=== PATIENT | female | born 1930 | race Caucasian/White ===

== ENCOUNTER 2017-09-17 16:52 | Observation (INO) | payer MEDICARE ==
[2017-09-17] MEDS ORDERED: Sodium Chloride 0.9% 1000 ML 1,000 ML ONE ×2 (18:20→19:27)
[2017-09-17] MEDS ORDERED: Zofran 4 MG/2 ML VIAL ONE (18:20)
[2017-09-17] MEDS ORDERED: Sodium Chloride 0.9% 1000 ML 1,000 ML IV STA ×2 (18:20→18:45)
[2017-09-17] MEDS ORDERED: Zofran 4 MG/2 ML VIAL IV ONE (18:21)
[2017-09-17] MEDS ORDERED: TYLENOL 325 MG PO STA (18:45)
[2017-09-17] MEDS ORDERED: TYLENOL 325 MG ONE (18:46)
--- NOTE | 2017-09-17 18:55 | ERPHSYRPT ---
- History of Present Illness Source: patient, family Exam Limitations: clinical condition Patient Subjective Stated Complaint: VOMITING AND FEVER STARTING LAST NIGHT, BODY ACHES, HEADACHE, DENIESH CHEST PAIN, COUGH, SHORTNESS OF BREATH OR DIARRHEA Triage Nursing Assessment: ALERT AND ORIENTED. MOANING. EASY BREATHING. BILATERAL ANTERIOR POSTERIOR LUNGS DIMINISHED. BOWEL SOUNDS PRESENT. NO EDEMA. Timing/Duration: yesterday Severity: moderate Associated Symptoms: nausea, vomiting, cough, fever, headaches, loss of appetite Hx Tetanus, Diphtheria Vaccination/Date Given: No Hx Influenza Vaccination/Date Given: No Hx Pneumococcal Vaccination/Date Given: Yes Immunizations Up to Date: No <MANJIT WOODWARD - Last Filed: 09/17/17 18:51> <CHAITANYA MOTTA - Last Filed: 09/17/17 23:37> - History of Present Illness Time Seen by Provider: 09/17/17 18:51 Physician History: mild to mod fever and cough w/ NV for one day, diffuse aches and generalized weakness (MANJIT WOODWARD) Allergies/Adverse Reactions: erythromycin base Allergy (Verified 09/14/15 18:16) iodine Allergy (Verified 09/14/15 18:16) meloxicam Allergy (Verified 09/14/15 18:16) methotrexate Allergy (Verified 09/14/15 18:16) methylprednisolone [From Medrol] Allergy (Verified 09/14/15 18:16) metoclopramide HCl [From Reglan] Allergy (Verified 09/14/15 18:16) primidone [From Mysoline] Allergy (Verified 09/14/15 18:16) Home Medications: Acetaminophen [Tylenol Extra Strength] 1,000 mg PO Q4H PRN PRN 09/14/15 [History ] Brimonidine Tartrate/Timolol [Combigan Eye Drops] 2 drop OP BID 09/14/15 [ History] Calcium Carbonate/Vitamin D3 [Calcium 600 + Vit D 200 Tablet] 1 each PO BID 05/22 [History] Dextran 70/Hypromellose [Artificial Tears] 1 each OP QID 09/14/15 [History] Esomeprazole Magnesium [Nexium] 40 mg PO DAILY 09/14/15 [History] Folic Acid/Multivit,Iron,[place] [One Daily Complete Tablet] 1 each PO DAILY 09/14 [History] Hydrocodone Bit/Acetaminophen [[place] 5-325 Tablet] 1 each PO Q6H PRN PRN [History] Meclizine HCl [Antivert] 12.5 mg PO QID PRN PRN 09/14/15 [History] Polyethylene Glycol 3350 17 gm [Miralax Powder 17GM PACKET] 17 gm PO DAILY [History] Trazodone HCl 50 mg [Desyrel 50 mg] 25 mg PO HS PRN PRN 09/14/15 [History] Vit A/Vit C/Vit E/Zinc/Copper [Icaps Areds Formula Tablet] 4 each PO DAILY 09/14 [History] - Review of Systems Constitutional: Fever, Fatigue Eyes: No Eye Pain Ears, Nose, & Throat: No Mouth Pain Respiratory: Cough Cardiac: No Chest Pain Abdominal/Gastrointestinal: Nausea, Vomiting Genitourinary Symptoms: No Dysuria Musculoskeletal: No Injury Neurological: Headache, No Focal Weakness Psychological: No Symptoms <MANJIT WOODWARD - Last Filed: 09/17/17 18:51> - Past Medical History Pertinent Past Medical History: Yes ENT History: Cataracts, Glaucoma Musculoskeletal History: Degenerative Disk Disease GI Medical History: GERD - Past Surgical History Past Surgical History: Yes Musculoskeletal: Orthopedic Surgery Female Surgical History: Hysterectomy Other Surgical History: cataracts, glaucoma, left bone spur, right rotator cuff , right knee orthoscopic, rectal - Social History Smoking Status: Never smoker Exposure to second hand smoke: No Drug Use: none Patient Lives Alone: Yes <MANJIT WOODWARD - Last Filed: 09/17/17 18:51> - Physical Exam General Appearance: no apparent distress Eye Exam: other (disconjugate gaze not new) Ears, Nose, Throat Exam: moist mucous membranes Neck Exam: supple, No meningismus Respiratory Exam: normal breath sounds Cardiovascular Exam: regular rate/rhythm Gastrointestinal/Abdomen Exam: soft, tenderness, No distention, No rebound Back Exam: No vertebral tenderness Extremity Exam: pelvis stable Neurologic Exam: alert, oriented x 3, cooperative Skin Exam: normal color, warm, dry Oxygen Delivery: Room Air <MANJIT WOODWARD - Last Filed: 09/17/17 18:51> - Nursing Vital Signs Nursing Vital Signs: Initial Vital Signs Temperature 99.6 F 09/17/17 17:49 Pulse Rate 90 09/17/17 17:49 Respiratory Rate 20 09/17/17 17:49 Blood Pressure 123/66 09/17/17 17:49 Pain Scale Pain Intensity 7 - CT Exams Head CT Interpretation: Discussed w/radiologist (STABLE NONACUTE SENILE BRAIN WITH A 1.5CM RIGHT POSTERIOR FOSSA CALCIFIED MENINGOMA NO CHANGE COMPARED TO 07/23/2008 , COMPLETE OPACIFICATION OF PARTIAL VISUALIZATION LEFT MAXILLARY SINUS) Abdomen/Pelvis CT Interpretation: Discussed w/radiologist (SMALL HIATAL HERNIA,LEFT RENAL PERIPELVIC CYSTS, SMALL FATTY LEFT INGUINAL HERNIA, REMAINING ABDOMEN/PELVIS NEGATIVE) <CHAITANYA MOTTA - Last Filed: 09/17/17 23:37> Ordered Tests: Active Orders 24 hr Category Date Time Status Up With Assistance ROUTINE Activity 09/17/17 23:31 Ordered Admission/Status Order ROUTINE Care 09/17/17 23:32 Ordered Call Admit Doctor for Orders ON ADMISSION Care 09/17/17 23:33 Ordered Code Status Order ROUTINE Care 09/17/17 23:32 Ordered IV Care Q6H Care 09/17/17 23:32 Ordered IV Insertion STAT Care 09/17/17 18:45 Active Vital Signs Q4H Care 09/17/17 23:31 Ordered Clear Liquid Diet 09/17/17 Breakfast Ordered ABDOMEN AND PELVIS W/0 CONTRAS [CT] Stat Exams 09/17/17 18:55 Taken CHEST 1 VIEW (PORTABLE) Stat Exams 09/17/17 18:46 Taken HEAD WITHOUT CONTRAST [CT] Stat Exams 09/17/17 19:37 Taken BLOOD CULTURE Stat Lab 09/17/17 19:10 Received CBC W DIFF Stat Lab 09/17/17 18:45 Completed CMP Stat Lab 09/17/17 18:45 Completed CULTURE, THROAT Stat Lab 09/17/17 19:10 Received CULTURE,URINE Stat Lab 09/17/17 19:10 Received Lactic Acid Stat Lab 09/17/17 18:45 Completed Manual Differential NC Stat Lab 09/17/17 18:45 Completed STREP SCREEN-BETA A Stat Lab 09/17/17 19:10 Completed UA W/ MICROSCOPIC Stat Lab 09/17/17 19:10 Completed Medication Summary Generic Name Dose Route Start Last Admin Trade Name Freq PRN Reason Stop Dose Admin Acetaminophen 650 mg 09/17/17 23:31 Tylenol 325 Mg PO 10/17/17 23:30 Q4H PRN PRN PAIN AND/OR FEVER Hydrocodone Bitart/Acetaminophen 1 tab 09/17/17 23:36 [place] 5/325 Mg PO 09/22/17 23:35 QID PRN PRN PAIN Ceftriaxone Sodium/Dextrose 1 g in 50 mls @ 100 mls/hr 09/18/17 10:00 Rocephin 1 Gm-D5w 50 Ml Bag IV 10/18/17 09:59 Q24H10 [place] Sodium Chloride 1,000 mls @ 75 mls/hr 09/17/17 23:45 Sodium Chloride 0.9% 1000 Ml IV 10/17/17 23:44 .[id number] [place] Ondansetron HCl 4 mg 09/17/17 23:31 Zofran 4 Mg/2 Ml Vial IV 10/17/17 23:30 Q6H PRN PRN NAUSEA/VOMITING Pantoprazole Sodium 40 mg 09/18/17 10:00 Protonix 40 Mg Iv IV 10/18/17 09:59 Q24H10 [place] Trazodone HCl 50 mg 09/18/17 10:00 Desyrel 50 Mg PO 10/18/17 09:59 DAILY [facility] Discontinued Medications Generic Name Dose Route Start Last Admin Trade Name Freq PRN Reason Stop Dose Admin Acetaminophen Confirm 09/17/17 18:46 Tylenol 325 Mg Administered 09/17/17 18:47 Dose 650 mg .ROUTE .STK-MED ONE Acetaminophen 650 mg 09/17/17 18:45 09/17/17 18:51 Tylenol 325 Mg PO 09/17/17 18:46 650 mg STAT STA Administration Fentanyl Citrate 50 mcg 09/17/17 23:25 09/17/17 23:30 Sublimaze 100 Mcg/2 Ml IV 09/17/17 23:26 50 mcg STAT ONE Administration Fentanyl Citrate Confirm 09/17/17 23:29 Sublimaze 100 Mcg/2 Ml Administered 09/17/17 23:30 Dose 100 mcg .ROUTE .STK-MED ONE Sodium Chloride 1,000 mls @ 999 mls/hr 09/17/17 18:20 09/17/17 18:22 Sodium Chloride 0.9% 1000 Ml IV 09/17/17 19:20 999 mls/hr .Q1H1M STA Administration Sodium Chloride Confirm 09/17/17 18:20 Sodium Chloride 0.9% 1000 Ml Administered 09/17/17 18:21 Dose 1,000 mls @ ud .ROUTE .STK-MED ONE Sodium Chloride 1,000 mls @ 999 mls/hr 09/17/17 18:45 09/17/17 19:33 Sodium Chloride 0.9% 1000 Ml IV 09/17/17 19:45 999 mls/hr .Q1H1M STA Administration Sodium Chloride Confirm 09/17/17 19:27 Sodium Chloride 0.9% 1000 Ml Administered 09/17/17 19:28 Dose 1,000 mls @ ud .ROUTE .STK-MED ONE Ceftriaxone Sodium/Dextrose 1 g in 50 mls @ 100 mls/hr 09/17/17 21:22 21:29 Rocephin 1 Gm-D5w 50 Ml Bag IV 09/17/17 21:51 100 mls/hr STAT STA Administration Ceftriaxone Sodium/Dextrose Confirm 09/17/17 21:27 Rocephin 1 Gm-D5w 50 Ml Bag Administered 09/17/17 21:28 Dose 1 g in 50 mls @ ud IV .STK-MED ONE Ondansetron HCl 4 mg 09/17/17 18:21 09/17/17 18:23 Zofran 4 Mg/2 Ml Vial IV 09/17/17 18:22 4 mg STAT ONE Administration Ondansetron HCl Confirm 09/17/17 18:20 Zofran 4 Mg/2 Ml Vial Administered 09/17/17 18:21 Dose 4 mg .ROUTE .STK-MED ONE Lab/Rad Data: Laboratory Result Diagrams 09/17/17 18:45 09/17/17 18:45 Laboratory Results 09/17/17 09/17/17 09/17/17 Range/Units 19:15 19:10 19:10 WBC (4.0-10.5) K/mm3 RBC (4.1-5.4) M/mm3 Hgb (12.0-16.0) gm/dl Hct (35-47) % MCV (78-100) fl MCH (26-32) pg MCHC (32-36) g/dl RDW (11.5-14.0) % Plt Count (150-450) K/mm3 MPV (6-9.5) fl Segmented Neutrophils (36.0-66.0) % Lymphocytes (Manual) (24-44) % Monocytes (Manual) (0.0-12.0) % Differential Comment Platelet Estimate (NORMAL) Sodium (136-145) mEq/L Potassium (3.5-5.1) mEq/L Chloride (98-107) mEq/L Carbon Dioxide (21-32) mEq/L Anion Gap (5-15) MEQ/L BUN (9-20) mg/dL Creatinine (0.55-1.30) mg/dl Estimated GFR ML/MIN Glucose (70-110) MG/DL Lactic Acid (0.4-2.0) Calcium (8.5-10.1) mg/dL Total Bilirubin (0.2-1.0) mg/dL AST (15-37) U/L ALT (12-78) U/L Alkaline Phosphatase (46-116) U/L Serum Total Protein (6.4-8.2) gm/dL Albumin (3.4-5.0) g/dL Ur Collection Type CLEAN CATCH Urine Color DARK YELLOW (YELLOW) Urine Appearance CLEAR (CLEAR) Urine pH 7.0 (5-6) Ur Specific [place] 1.015 (1.005-1.025) Urine Protein TRACE (Negative) Urine Ketones LARGE (NEGATIVE) Urine Blood 250 (0-5) Oleg/ul Urine Nitrite NEGATIVE (NEGATIVE) Urine Bilirubin NEGATIVE (NEGATIVE) Urine Urobilinogen NORMAL (0-1) mg/dL Ur Leukocyte Esterase NEGATIVE (NEGATIVE) Urine Microscopic RBC 25-50 (0-2) /HPF Urine Microscopic WBC 2-5 (0-5) /HPF Ur Epithelial Cells FEW (FEW) /HPF Urine Bacteria FEW (NEGATIVE) /HPF Urine Mucus SLIGHT (NEGATIVE) /HPF Urine Culture Reflexed YES (NO) Urine Glucose NEGATIVE (NEGATIVE) mg/dL Influenza Type A Ag NEGATIVE (NEGATIVE) Influenza Type B Ag NEGATIVE (NEGATIVE) RSV (PCR) NEGATIVE (Negative) Streptococcus Screen NEGATIVE (Negative) Specimen Received 09/17/17190909/17/17 09/17/17 09/17/17 Range/Units 18:45 18:45 18:45 WBC 9.0 (4.0-10.5) K/mm3 RBC 4.42 (4.1-5.4) M/mm3 Hgb 13.3 (12.0-16.0) gm/dl Hct 41.2 (35-47) % MCV 93.2 (78-100) fl MCH 30.1 (26-32) pg MCHC 32.3 (32-36) g/dl RDW 13.9 (11.5-14.0) % Plt Count 149 L (150-450) K/mm3 MPV 11.3 H (6-9.5) fl Segmented Neutrophils 87 H (36.0-66.0) % Lymphocytes (Manual) 8 L (24-44) % Monocytes (Manual) 5 (0.0-12.0) % Differential Comment NORMAL Platelet Estimate NORMAL (NORMAL) Sodium 138 (136-145) mEq/L Potassium 3.6 (3.5-5.1) mEq/L Chloride 100 (98-107) mEq/L Carbon Dioxide 28.2 (21-32) mEq/L Anion Gap 13.0 (5-15) MEQ/L BUN 15 (9-20) mg/dL Creatinine 0.79 (0.55-1.30) mg/dl Estimated GFR > 60 ML/MIN Glucose 120 H (70-110) MG/DL Lactic Acid 1.1 (0.4-2.0) Calcium 9.1 (8.5-10.1) mg/dL Total Bilirubin 0.70 (0.2-1.0) mg/dL AST 32 (15-37) U/L ALT 22 (12-78) U/L Alkaline Phosphatase 93 (46-116) U/L Serum Total Protein 7.7 (6.4-8.2) gm/dL Albumin 3.6 (3.4-5.0) g/dL Ur Collection Type Urine Color (YELLOW) Urine Appearance (CLEAR) Urine pH (5-6) Ur Specific [place] (1.005-1.025) Urine Protein (Negative) Urine Ketones (NEGATIVE) Urine Blood (0-5) Oleg/ul Urine Nitrite (NEGATIVE) Urine Bilirubin (NEGATIVE) Urine Urobilinogen (0-1) mg/dL Ur Leukocyte Esterase (NEGATIVE) Urine Microscopic RBC (0-2) /HPF Urine Microscopic WBC (0-5) /HPF Ur Epithelial Cells (FEW) /HPF Urine Bacteria (NEGATIVE) /HPF Urine Mucus (NEGATIVE) /HPF Urine Culture Reflexed (NO) Urine Glucose (NEGATIVE) mg/dL Influenza Type A Ag (NEGATIVE) Influenza Type B Ag (NEGATIVE) RSV (PCR) (Negative) Streptococcus Screen (Negative) Specimen Received <MANJIT WOODWARD - Last Filed: 09/17/17 18:51> - Progress Discussed with : Blanco (DISCUSSED WITH DR CHURCH AT 2330 FOR OBSERVATION) <CHAITANYA MOTTA - Last Filed: 09/17/17 23:37> - Progress Progress Note: 09/17/17 18:[address] Motta at 19:00 (MANJIT WOODWARD) <MANJIT WOODWARD - Last Filed: 09/17/17 18:51> - Departure Time of Disposition: 23:30 Departure Disposition: In-patient Admission Critical Care Time: No <CHAITANYA MOTTA - Last Filed: 09/17/17 23:37> - Departure Clinical Impression: INTRACTABLE EMESIS, FEVER, LEFT MAXILLARY SINUSITIS Condition: Stable Referrals: BRANDON IYER [Primary Care Provider] -
[2017-09-17 18:59] LABS: Mean Cell Volume 93.2 fl (78-100); Mean Corpuscular Hemoglobin 30.1 pg (26-32); Mean Platelet Volume 11.3 fl (6-9.5); Platelet Count 149 K/mm3 (150-450); Red Blood Count 4.42 M/mm3 (4.1-5.4); Red Cell Distribution Width 13.9 % (11.5-14.0)
[2017-09-17 19:04] LABS: ALBUMIN 3.6 g/dL (3.4-5.0); ALKALINE PHOSPHATASE 93 U/L (46-116); BLOOD UREA NITROGEN 15 mg/dL (9-20); CHLORIDE 100 mEq/L (98-107); Carbon Dioxide 28.2 mEq/L (21-32); Glucose 120 MG/DL (70-110); Potassium 3.6 mEq/L (3.5-5.1); SGOT/AST 32 U/L (15-37); SGPT/ALT 22 U/L (12-78); SODIUM 138 mEq/L (136-145); Total Protein 7.7 gm/dL (6.4-8.2)
[2017-09-17 19:16] LABS: Total Cells Counted 100
[2017-09-17 19:17] LABS: Platelet Estimate NORMAL (NORMAL)
[2017-09-17 20:07] LABS: Collection Type CLEAN CATCH
[2017-09-17 20:08] LABS: Bilirubin NEGATIVE (NEGATIVE); Blood 250 Ery/ul (0-5); COMPLETE URINE MICROSCOPIC? YES; Glucose NEGATIVE (NEGATIVE); Leukocyte Esterase NEGATIVE (NEGATIVE); Mucus SLIGHT /HPF (NEGATIVE)
[2017-09-17 20:09] LABS: ADD URINE CULTURE? YES (NO); Bacteria FEW /HPF (NEGATIVE); Epithelial Cells FEW /HPF (FEW)
[2017-09-17] MEDS ORDERED: ROCEPHIN 1 Gm-D5w 50 ml Bag** 1 G/50 ML IVPB IV STA (21:22)
[2017-09-17] MEDS ORDERED: ROCEPHIN 1 Gm-D5w 50 ml Bag** 1 G/50 ML IVPB IV ONE (21:27)
[2017-09-17] MEDS ORDERED: SUBLIMAZE 100 MCG/2 ML IV ONE (23:25)
[2017-09-17] MEDS ORDERED: SUBLIMAZE 100 MCG/2 ML ONE (23:29)
[2017-09-17] MEDS ORDERED: TYLENOL 325 MG PO PRN (23:31)
[2017-09-17] MEDS ORDERED: Zofran 4 MG/2 ML VIAL IV PRN (23:31)
[2017-09-18] MEDS: Sodium Chloride 0.9% 1000 ML 1,000 ML IV SCH ×2 (02:05→13:57)
[2017-09-18] MEDS: NORCO 5/325 MG PO PRN ×2 (05:07→11:42)
--- NOTE | 2017-09-18 08:40 | XRAY ---
Indication: Fever. Comparison: December 26, 2011. Portable chest again hyperinflated with a few incidental calcific granulomas. No focal infiltrate, consolidation, or large effusion. Heart is not enlarged for AP portable technique. Bony thorax intact again with mild osteopenia and previous right shoulder surgery. Impression: Stable nonacute chest with chronic features.
--- NOTE | 2017-09-18 08:44 | XRAY ---
Indication: Headache. Multiple contiguous axial images obtained through the head without contrast. Comparison: July 23, 2008. Again age-appropriate global atrophy and minimal periventricular degenerative micro-ischemia. Again there is a 1.5 cm right posterior fossa calcified meningioma. No acute intracranial hemorrhage, abnormal extra-axial fluid collection, or mass effect. Fourth ventricle is midline without hydrocephalus. The bony calvarium is intact. Visualized left maxillary sinus demonstrates complete opacification. The remaining visualized paranasal sinuses and mastoid air cells are clear. Impression: 1. Again nonacute senile brain with right posterior fossa calcified meningioma. 2. New left maxillary sinus opacification. CTDI 68.15
--- NOTE | 2017-09-18 08:48 | XRAY ---
Indication: Fever, cough, headache, emesis, and body ache. Multiple contiguous axial images obtained through the abdomen and pelvis without contrast as ordered. Comparison: None Lung bases demonstrates bibasilar dependent atelectasis and right base calcified granuloma. Heart is not enlarged. Small hiatal hernia. Noncontrasted stomach and bowel loops appear nonobstructed. Previous reported appendectomy and hysterectomy. A few left renal peripelvic cysts, largest 2.2 cm. Gallbladder mildly distended without gallstones or biliary distention. Remaining liver, gallbladder, pancreas, spleen, adrenal glands, kidneys, ureters, bladder, and aorta appear unremarkable for noncontrast exam. Osseous structures intact with mild/moderate degenerative changes throughout the spine. Small fatty left inguinal hernia. Impression: 1. No acute intra-abdominal/pelvic abnormalities on this noncontrast exam. 2. Incidental small hiatal hernia, left renal peripelvic cysts, and small fatty left inguinal hernia. CTDI 10.09
[2017-09-18] MEDS ORDERED: DESYREL 50 MG PO SCH (10:00)
[2017-09-18] MEDS ORDERED: PROTONIX 40 MG IV IV SCH (10:00)
--- NOTE | 2017-09-18 11:54 | PCM.HP ---
History of Present Illness - Chief Complaint Chief Complaint: Intractable emesis/fever. for 2-3 days History of Present Illness: is a 87 year old female.came to ER with c/o nausea, vomiting, back pain - Review of Systems Constitutional: No Fever, No Chills Eyes: No Symptoms Ears, Nose, & Throat: No Symptoms Respiratory: No Cough, No Short Of Breath Cardiac: No Chest Pain, No Edema, No Syncope Abdominal/Gastrointestinal: Nausea, Vomiting, Diarrhea, No Abdominal Pain Genitourinary Symptoms: No Dysuria Musculoskeletal: No Back Pain, No Neck Pain Skin: No Rash Neurological: No Dizziness, No Focal Weakness, No Sensory Changes Psychological: No Symptoms Endocrine: No Symptoms Hematologic/Lymphatic: No Symptoms Immunological/Allergic: No Symptoms Medications & Allergies Home Medications: Home Medication List Acetaminophen [Tylenol Extra Strength] 2 mg PO Q4H PRN PRN 09/14/15 [History Confirmed 09/18/17] Brimonidine Tartrate/Timolol [Combigan Eye Drops] 2 drop OP BID 09/14/15 [ History Confirmed 09/18/17] Dextran 70/Hypromellose [Artificial Tears] 1 each OP QID 09/14/15 [History Confirmed 09/18/17] Esomeprazole Magnesium [Nexium] 1 mg PO DAILY 09/14/15 [History Confirmed ] Folic Acid/Multivit,Iron,[place] [One Daily Complete Tablet] 1 each PO DAILY 09/14 [History Confirmed 09/18/17] Hydrocodone Bit/Acetaminophen [[place] 5-325 Tablet] 7.5 each PO Q6H PRN PRN 09/14 [History Confirmed 09/18/17] Meclizine HCl [Antivert] 1 mg PO QID PRN PRN 09/14/15 [History Confirmed ] Polyethylene Glycol 3350 17 gm [Miralax Powder 17GM PACKET] 17 gm PO DAILY [History Confirmed 09/18/17] Trazodone HCl 50 mg [Desyrel 50 mg] 1 mg PO HS PRN PRN 09/14/15 [History Confirmed 09/18/17] Vit A/Vit C/Vit E/Zinc/Copper [Icaps Areds Formula Tablet] 1 each PO DAILY 09/14 [History Confirmed 09/18/17] Gabapentin 300 mg PO QHS 09/18/17 [History Confirmed 09/18/17] Allergies/Adverse Reactions: Allergies Allergy/AdvReac Type Severity Reaction Status Date / Time erythromycin base Allergy Verified 09/14/15 18:16 iodine Allergy Verified 09/14/15 18:16 meloxicam Allergy Verified 09/14/15 18:16 methotrexate Allergy Verified 09/14/15 18:16 methylprednisolone Allergy Verified 09/14/15 18:16 [From Medrol] metoclopramide HCl Allergy Verified 09/14/15 18:16 [From Reglan] primidone [From Mysoline] Allergy Verified 09/14/15 18:16 - Past Medical History Past Medical History: Yes ENT History: Cataracts, Glaucoma Musculoskelatal History: Degenerative Disk Disease GI Medical History: GERD - Female History Are you now?: No - Past Surgical History Past Surgical History: Yes Musculskeletal Surgical Hx: Orthopedic Surgery Female Surgical History: Hysterectomy Other Surgical History: cataracts, glaucoma, left bone spur, right rotator cuff , right knee orthoscopic, rectal - Social History Smoking Status: Never smoker Exposure to second hand smoke: No Alcohol: None Drug Use: none - Physical Exam Vital Signs: Vital Signs - 24 hr Temp Pulse Resp BP Pulse Ox 09/18/17 11:16 98.2 F 99 H 18 101/60 93 L 09/18/17 07:40 98.8 F 124 H 20 90/55 90 L 09/18/17 04:00 98.3 F 70 16 114/56 97 09/18/17 00:10 98.9 F 68 17 117/61 97 09/17/17 23:06 70 18 102/48 97 09/17/17 21:59 80 20 103/50 95 09/17/17 21:12 74 18 105/55 95 09/17/17 20:12 73 20 109/55 98 09/17/17 19:30 82 20 124/58 97 09/17/17 17:50 101.3 F 09/17/17 17:49 99.6 F 90 20 123/66 General Appearance: no apparent distress, alert Neurologic Exam: alert, oriented x 3, cooperative, normal mood/affect, nml cerebellar function, nml station & gait, sensation nml, No motor deficits Eye Exam: PERRL/EOMI, eyes nml inspection Ears, Nose, Throat Exam: normal ENT inspection, TMs normal, pharynx normal, moist mucous membranes Neck Exam: normal inspection, non-tender, supple, full range of motion Respiratory Exam: normal breath sounds, lungs clear, No respiratory distress Cardiovascular Exam: regular rate/rhythm, normal heart sounds, normal peripheral pulses Gastrointestinal/Abdomen Exam: soft, normal bowel sounds, No tenderness, No mass Back Exam: normal inspection, normal range of motion, No CVA tenderness, No vertebral tenderness Extremity Exam: normal inspection, normal range of motion, pelvis stable Skin Exam: normal color, warm, dry, No rash Lymphatic Exam: No adenopathy Assessment/Plan (1) Nausea & vomiting Current Visit: Yes Status: Acute Qualifiers: Vomiting type: unspecified Vomiting Intractability: intractable Qualified Code(s): R11.2 - Nausea with vomiting, unspecified Assessment & Plan: Chief Complaint Diagnosis Intractable emesis/fever. Left maxillary sinusitis Allergies Allergy/AdvReac Type Severity Reaction Status Date / Time erythromycin base Allergy Verified 09/14/15 18:16 iodine Allergy Verified 09/14/15 18:16 meloxicam Allergy Verified 09/14/15 18:16 methotrexate Allergy Verified 09/14/15 18:16 methylprednisolone Allergy Verified 09/14/15 18:16 [From Medrol] metoclopramide HCl Allergy Verified 09/14/15 18:16 [From Reglan] primidone [From Mysoline] Allergy Verified 09/14/15 18:16 Vital Signs (Last 24 hours) Temp Pulse Resp BP Pulse Ox 09/18/17 11:16 98.2 F 99 H 18 101/60 93 L 09/18/17 07:40 98.8 F 124 H 20 90/55 90 L 09/18/17 04:00 98.3 F 70 16 114/56 97 09/18/17 00:10 98.9 F 68 17 117/61 97 09/17/17 23:06 70 18 102/48 97 09/17/17 21:59 80 20 103/50 95 09/17/17 21:12 74 18 105/55 95 09/17/17 20:12 73 20 109/55 98 09/17/17 19:30 82 20 124/58 97 09/17/17 17:50 101.3 F 09/17/17 17:49 99.6 F 90 20 123/66 Home Medications Medication Instructions Recorded Confirmed Last Taken Type Gabapentin 300 mg PO QHS 09/18/17 09/18/17 Unknown History Current Medications Generic Name Dose Route Start Last Admin Trade Name Rosendo PRN Reason Stop Dose Admin Acetaminophen 650 mg 09/17/17 23:31 Tylenol 325 Mg PO 10/17/17 23:30 Q4H PRN PRN PAIN AND/OR FEVER Hydrocodone Bitart/Acetaminophen 1 tab 09/17/17 23:36 09/18/17 11:42 [place] 5/325 Mg PO 09/22/17 23:35 1 tab QID PRN PRN Administration PAIN Ceftriaxone Sodium/Dextrose 1 g in 50 mls @ 100 mls/hr 09/18/17 22:00 Rocephin 1 Gm-D5w 50 Ml Bag IV 10/18/17 21:59 QPM [place] Sodium Chloride 1,000 mls @ 75 mls/hr 09/17/17 23:45 09/18/17 02:05 Sodium Chloride 0.9% 1000 Ml IV 10/17/17 23:44 75 mls/hr .[id number] [place] Administration Ondansetron HCl 4 mg 09/17/17 23:31 Zofran 4 Mg/2 Ml Vial IV 10/17/17 23:30 Q6H PRN PRN NAUSEA/VOMITING Pantoprazole Sodium 40 mg 09/18/17 10:00 09/18/17 10:30 Protonix 40 Mg Iv IV 10/18/17 09:59 40 mg Q24H10 [place] Administration Trazodone HCl 50 mg 09/18/17 22:00 Desyrel 50 Mg PO 10/18/17 21:59 HS [place] Discontinued Medications Generic Name Dose Route Start Last Admin Trade Name Rosendo PRN Reason Stop Dose Admin Acetaminophen Confirm 09/17/17 18:46 Tylenol 325 Mg Administered 09/17/17 18:47 Dose 650 mg .ROUTE .STK-MED ONE Acetaminophen 650 mg 09/17/17 18:45 09/17/17 18:51 Tylenol 325 Mg PO 09/17/17 18:46 650 mg STAT STA Administration Fentanyl Citrate 50 mcg 09/17/17 23:25 09/17/17 23:30 Sublimaze 100 Mcg/2 Ml IV 09/17/17 23:26 50 mcg STAT ONE Administration Fentanyl Citrate Confirm 09/17/17 23:29 Sublimaze 100 Mcg/2 Ml Administered 09/17/17 23:30 Dose 100 mcg .ROUTE .STK-MED ONE Sodium Chloride 1,000 mls @ 999 mls/hr 09/17/17 18:20 09/17/17 18:22 Sodium Chloride 0.9% 1000 Ml IV 09/17/17 19:20 999 mls/hr .Q1H1M STA Administration Sodium Chloride Confirm 09/17/17 18:20 Sodium Chloride 0.9% 1000 Ml Administered 09/17/17 18:21 Dose 1,000 mls @ ud .ROUTE .STK-MED ONE Sodium Chloride 1,000 mls @ 999 mls/hr 09/17/17 18:45 09/17/17 19:33 Sodium Chloride 0.9% 1000 Ml IV 09/17/17 19:45 999 mls/hr .Q1H1M STA Administration Sodium Chloride Confirm 09/17/17 19:27 Sodium Chloride 0.9% 1000 Ml Administered 09/17/17 19:28 Dose 1,000 mls @ ud .ROUTE .STK-MED ONE Ceftriaxone Sodium/Dextrose 1 g in 50 mls @ 100 mls/hr 09/17/17 21:22 21:29 Rocephin 1 Gm-D5w 50 Ml Bag IV 09/17/17 21:51 100 mls/hr STAT STA Administration Ceftriaxone Sodium/Dextrose Confirm 09/17/17 21:27 Rocephin 1 Gm-D5w 50 Ml Bag Administered 09/17/17 21:28 Dose 1 g in 50 mls @ ud IV .STK-MED ONE Ondansetron HCl 4 mg 09/17/17 18:21 09/17/17 18:23 Zofran 4 Mg/2 Ml Vial IV 09/17/17 18:22 4 mg STAT ONE Administration Ondansetron HCl Confirm 09/17/17 18:20 Zofran 4 Mg/2 Ml Vial Administered 09/17/17 18:21 Dose 4 mg .ROUTE .STK-MED ONE Trazodone HCl 50 mg 09/18/17 10:00 Desyrel 50 Mg PO 10/18/17 09:59 DAILY [place] Intake & Output (Last 24 hours) 09/15/17 09/16/17 09/17/17 09/18/17 11:59 11:59 11:59 11:59 Intake Total 612 Output Total 500 Balance 112 Weight 59.058 kg Microbiology Results (Last 24 hours) 09/17/17 19:10 Clean Catch Midstream - Pending 09/17/17 19:10 Throat Throat Culture - Pending 09/17/17 19:10 Blood - Pending 09/17/17 19:10 Blood Blood Culture - Pending 09/17/17 18:45 Blood - Pending 09/17/17 18:45 Blood Blood Culture - Pending Laboratory Results (Last 24 hours) 09/17/17 09/17/17 09/17/17 19:15 19:10 19:10 WBC RBC Hgb Hct MCV MCH MCHC RDW Plt Count MPV Segmented Neutrophils Lymphocytes (Manual) Monocytes (Manual) Differential Comment Platelet Estimate Sodium Potassium Chloride Carbon Dioxide Anion Gap BUN Creatinine Estimated GFR Glucose Lactic Acid Calcium Total Bilirubin AST ALT Alkaline Phosphatase Serum Total Protein Albumin Ur Collection Type CLEAN CATCH Urine Color DARK YELLOW Urine Appearance CLEAR Urine pH 7.0 Ur Specific Conrad 1.015 Urine Protein TRACE Urine Ketones LARGE Urine Blood 250 Urine Nitrite NEGATIVE Urine Bilirubin NEGATIVE Urine Urobilinogen NORMAL Ur Leukocyte Esterase NEGATIVE Urine Microscopic RBC 25-50 Urine Microscopic WBC 2-5 Ur Epithelial Cells FEW Urine Bacteria FEW Urine Mucus SLIGHT Urine Culture Reflexed YES Urine Glucose NEGATIVE Influenza Type A Ag NEGATIVE Influenza Type B Ag NEGATIVE RSV (PCR) NEGATIVE Streptococcus Screen NEGATIVE Specimen Received 09/17/17190909/17/17 09/17/17 09/17/17 18:45 18:45 18:45 WBC 9.0 RBC 4.42 Hgb 13.3 Hct 41.2 MCV 93.2 MCH 30.1 MCHC 32.3 RDW 13.9 Plt Count 149 L MPV 11.3 H Segmented Neutrophils 87 H Lymphocytes (Manual) 8 L Monocytes (Manual) 5 Differential Comment NORMAL Platelet Estimate NORMAL Sodium 138 Potassium 3.6 Chloride 100 Carbon Dioxide 28.2 Anion Gap 13.0 BUN 15 Creatinine 0.79 Estimated GFR > 60 Glucose 120 H Lactic Acid 1.1 Calcium 9.1 Total Bilirubin 0.70 AST 32 ALT 22 Alkaline Phosphatase 93 Serum Total Protein 7.7 Albumin 3.6 Ur Collection Type Urine Color Urine Appearance Urine pH Ur Specific Conrad Urine Protein Urine Ketones Urine Blood Urine Nitrite Urine Bilirubin Urine Urobilinogen Ur Leukocyte Esterase Urine Microscopic RBC Urine Microscopic WBC Ur Epithelial Cells Urine Bacteria Urine Mucus Urine Culture Reflexed Urine Glucose Influenza Type A Ag Influenza Type B Ag RSV (PCR) Streptococcus Screen Specimen Received Orders (Last 24 hours) Category Date Time Status Up With Assistance Q1H Activity 09/17/17 23:31 Active Admission/Status Order ROUTINE Care 09/17/17 23:32 Active Call Admit Doctor for Orders ON ADMISSION Care 09/17/17 23:33 Active Code Status Order ROUTINE Care 09/17/17 23:32 Active IV Care Q6H Care 09/17/17 23:32 Active IV Insertion STAT Care 09/17/17 18:45 Active Vital Signs Q4H Care 09/17/17 23:31 Active Soft Diet Diet 09/18/17 Lunch Active ABDOMEN AND PELVIS W/0 CONTRAS [CT] Stat Exams 09/17/17 18:55 Completed CHEST 1 VIEW (PORTABLE) Stat Exams 09/17/17 18:46 Completed HEAD WITHOUT CONTRAST [CT] Stat Exams 09/17/17 19:37 Completed BLOOD CULTURE Stat Lab 09/17/17 19:10 Received CBC W DIFF Stat Lab 09/17/17 18:45 Completed CMP Stat Lab 09/17/17 18:45 Completed CULTURE, THROAT Stat Lab 09/17/17 19:10 Received CULTURE,URINE Stat Lab 09/17/17 19:10 Received Lactic Acid Stat Lab 09/17/17 18:45 Completed Manual Differential NC Stat Lab 09/17/17 18:45 Completed Respiratory Panel Stat Lab 09/17/17 19:15 Completed STREP SCREEN-BETA A Stat Lab 09/17/17 19:10 Completed UA W/ MICROSCOPIC Stat Lab 09/17/17 19:10 Completed Acetaminophen 325 mg [Tylenol 325 mg] Med 09/17/17 18:46 Discontinued 650 mg .ROUTE .STK-MED ONE Acetaminophen 325 mg [Tylenol 325 mg] Med 09/17/17 23:31 Active 650 mg PO Q4H PRN PRN Acetaminophen 325 mg [Tylenol 325 mg] Med 09/17/17 18:45 Discontinued 650 mg PO STAT STA Ceftriaxone 1 GM/50 ML PREMIX* [ROCEPHIN 1 Gm-D5w 50 ml Med 09/18/17 22:00 Active Bag] 1 g in 50 ml IV QPM Ceftriaxone 1 GM/50 ML PREMIX* [ROCEPHIN 1 Gm-D5w 50 ml Med 09/17/17 21:22 Discontinued Bag] 1 g in 50 ml IV STAT Ceftriaxone 1 GM/50 ML PREMIX* [ROCEPHIN 1 Gm-D5w 50 ml Med 09/17/17 21:27 Discontinued Bag] 1 g in 50 ml IV UD Fentanyl Citrate 100 Mcg/2 ml* [Sublimaze 100 Mcg/2 ml* Med 09/17/17 23:29 Discontinued ] 100 mcg .ROUTE .STK-MED ONE Fentanyl Citrate 100 Mcg/2 ml* [Sublimaze 100 Mcg/2 ml* Med 09/17/17 23:25 Discontinued ] 50 mcg IV STAT ONE Hydrocodone/APAP 5/325 [[place] 5/325 mg] Med 09/17/17 23:36 Active 1 tab PO QID PRN PRN NaCl 0.9% 1000 ml [Sodium Chloride 0.9% 1000 ML] 1,000 Med 09/17/17 18:20 Discontinued ml .ROUTE UD NaCl 0.9% 1000 ml [Sodium Chloride 0.9% 1000 ML] 1,000 Med 09/17/17 19:27 Discontinued ml .ROUTE UD NaCl 0.9% 1000 ml [Sodium Chloride 0.9% 1000 ML] 1,000 Med 09/17/17 23:45 Active ml IV 75 mls/hr NaCl 0.9% 1000 ml [Sodium Chloride 0.9% 1000 ML] 1,000 Med 09/17/17 18:20 Discontinued ml IV 999 mls/hr NaCl 0.9% 1000 ml [Sodium Chloride 0.9% 1000 ML] 1,000 Med 09/17/17 18:45 Discontinued ml IV 999 mls/hr Ondansetron HCl 4 mg/2 ml [Zofran 4 MG/2 ML VIAL] Med 09/17/17 18:20 Discontinued 4 mg .ROUTE .STK-MED ONE Ondansetron HCl 4 mg/2 ml [Zofran 4 MG/2 ML VIAL] Med 09/17/17 23:31 Active 4 mg IV Q6H PRN PRN Ondansetron HCl 4 mg/2 ml [Zofran 4 MG/2 ML VIAL] Med 09/17/17 18:21 Discontinued 4 mg IV STAT ONE Pantoprazole 40 mg [Protonix 40 mg IV] Med 09/18/17 10:00 Active 40 mg IV Q24H10 Trazodone HCl 50 mg [Desyrel 50 mg] Med 09/18/17 10:00 Discontinued 50 mg PO DAILY Trazodone HCl 50 mg [Desyrel 50 mg] Med 09/18/17 22:00 Active 50 mg PO HS Patient Care Notes (Last 24 hours) 09/18/17 11:26 Nursing Note by Nicole Bishop Dr called and received update on pt. Code(s): R11.2 - NAUSEA WITH VOMITING, UNSPECIFIED
[2017-09-18] MEDS ORDERED: NORCO 5/325 MG PO PRN (14:18)
[2017-09-18] MEDS ORDERED: MECLIZINE HCL 12.5 MG PO PRN (14:18)
[2017-09-18] MEDS ORDERED: ANTIVERT 25 MG PO PRN (14:24)
[2017-09-18] MEDS ORDERED: Miralax Powder 17GM PACKET PO SCH (15:00)
[2017-09-18] MEDS ORDERED: Ocuvite Tablet PO SCH (15:00)
[2017-09-18] MEDS ORDERED: THERAGRAN MULTIVITAMIN PO SCH (15:00)
[2017-09-18] MEDS: PATIENT OWN MEDICATION OP SCH ×2 (15:06→21:01)
[2017-09-18] MEDS ORDERED: NON-FORMULARY ITEM (Dextran 70/Hypromellose [Artificial Tears] 1 DROP) OP SCH (17:00)
[2017-09-18] MEDS ORDERED: NEURONTIN 300 MG PO SCH ×2 (17:00→22:00)
[2017-09-18] MEDS: Artificial Tears 15 ML OP SCH ×2 (17:16→21:03)
[2017-09-18] MEDS: NORCO 7.5/325 MG TAB PO PRN (19:35)
[2017-09-18] MEDS ORDERED: ROCEPHIN 1 Gm-D5w 50 ml Bag** 1 G/50 ML IVPB IV SCH (22:00)
[2017-09-18] MEDS ORDERED: BRIMONIDINE TARTRATE OP SCH (22:00)
[2017-09-18] MEDS ORDERED: TIMOLOL OP SCH (22:00)
[2017-09-18] MEDS ORDERED: DESYREL 50 MG PO PRN (22:00)
[2017-09-19] MEDS: Sodium Chloride 0.9% 1000 ML 1,000 ML IV SCH (03:32)
[2017-09-19] MEDS: NORCO 7.5/325 MG TAB PO PRN (06:51)
[2017-09-19 07:16] VITALS: BP 140/63; PULSE 73; O2SAT 98
--- NOTE | 2017-09-19 07:21 | PCM.NOTE ---
Date and Time: 09/19/17720 Subjective Assessment: doing better, tolerating diet well - Review of Systems Constitutional: No Fever, No Chills Eyes: No Symptoms Ears, Nose, & Throat: No Symptoms Respiratory: No Cough, No Short Of Breath Cardiac: No Chest Pain, No Edema, No Syncope Abdominal/Gastrointestinal: No Abdominal Pain, No Nausea, No Vomiting, No Diarrhea Genitourinary Symptoms: No Dysuria Musculoskeletal: No Back Pain, No Neck Pain Skin: No Rash Neurological: No Dizziness, No Focal Weakness, No Sensory Changes Psychological: No Symptoms Endocrine: No Symptoms Hematologic/Lymphatic: No Symptoms Immunological/Allergic: No Symptoms Objective Exam General Appearance: no apparent distress, alert Neurologic Exam: alert, oriented x 3, cooperative, normal mood/affect, nml cerebellar function, sensation nml, No motor deficits Skin Exam: normal color, warm, dry Eye Exam: PERRL, EOMI, eyes nml inspection Ears, Nose, Throat Exam: normal ENT inspection, pharynx normal, moist mucous membranes Neck Exam: normal inspection, non-tender, supple, full range of motion Respiratory Exam: normal breath sounds, lungs clear, No respiratory distress Cardiovascular Exam: regular rate/rhythm, normal heart sounds Gastrointestinal/Abdomen Exam: soft, No tenderness, No mass Extremity Exam: normal inspection, normal range of motion Back Exam: normal inspection, normal range of motion, No CVA tenderness, No vertebral tenderness Pelvic Exam: deferred Rectal Exam: deferred OBJECTIVE DATA Vital Signs: Vital Signs - 24 hr Temp Pulse Resp BP Pulse Ox 09/19/17 07:16 97.8 F 73 20 140/63 98 09/19/17 04:00 98.5 F 69 18 108/54 95 09/19/17 00:00 98.5 F 63 14 93/54 93 L 09/18/17 19:56 98.6 F 66 17 122/59 95 09/18/17 19:55 98.6 F 66 17 122/59 95 09/18/17 15:52 98 F 73 20 117/56 95 09/18/17 11:16 98.2 F 99 H 18 101/60 93 L 09/18/17 07:40 98.8 F 124 H 20 90/55 90 L Pain Assessment - Last Documented Pain Intensity 9 Pain Scale Used 0-10 Pain Scale Intake and Output: Intake & Output 11/09/09/17/17 09/18/17 09/19/17 11:59 11:59 11:59 11:59 Intake Total 612 1822 Output Total 500 1250 Balance 112 572 Weight 59.058 kg Assessment/Plan (1) Nausea & vomiting Current Visit: Yes Status: Resolved Qualifiers: Vomiting type: unspecified Vomiting Intractability: intractable Qualified Code(s): R11.2 - Nausea with vomiting, unspecified Code(s): R11.2 - NAUSEA WITH VOMITING, UNSPECIFIED
--- NOTE | 2017-09-19 08:31 | PCM.DCORD ---
- Discharge Discharge Date: 09/19/17 Disposition: Home, Self-Care Condition: Stable Prescriptions: Continue Brimonidine Tartrate/Timolol [Combigan 0.2%-0.5% Eye Drops] 2 drop OP BID Folic Acid/Multivit,Iron,[place] [One Daily Complete Tablet] 1 each PO DAILY Esomeprazole Magnesium [Nexium] 40 mg PO DAILY Meclizine HCl [Antivert] 12.5 mg PO QID PRN PRN PRN Reason: Dizziness Trazodone HCl 50 mg [Desyrel 50 mg] 50 mg PO HS PRN PRN PRN Reason: sleeping Hydrocodone Bit/Acetaminophen [[place] 5-325 Tablet] 7.5 each PO Q6H PRN PRN PRN Reason: Pain Acetaminophen [Tylenol Extra Strength] 2 tab PO Q4H PRN PRN PRN Reason: Pain Dextran 70/Hypromellose [Artificial Tears] 1 drop OP QID Vit A/Vit C/Vit E/Zinc/Copper [Icaps Areds Formula Dr Tablet] 1 each PO DAILY Polyethylene Glycol 3350 17 gm [Miralax Powder 17GM PACKET] 17 gm PO DAILY Gabapentin 300 mg PO 1700 Follow up with: BRANDON IYER [NON-STAFF PHY W/O PRIVILEGES] - KEYANNA CHURCH MD [Primary Care Provider] - 1 Week
[2017-09-19] MEDS ORDERED: VIT A PO SCH (10:00)
[2017-09-19] MEDS ORDERED: FOLIC ACID PO SCH (10:00)
[2017-09-19] MEDS ORDERED: [UNRECOGNIZED DRUG - OTHER] PO SCH (10:00)
[2017-09-19] MEDS ORDERED: NON-FORMULARY ITEM (Esomeprazole Magnesium [Nexium] 40 MG) PO SCH (10:00)
[2017-09-19] MEDS ORDERED: MULTIVIT IRON MINER PO SCH (10:00)
[2017-09-19] MEDS ORDERED: Protonix 40MG Tablet PO SCH (10:00)
[2017-09-19] MEDS ORDERED: VIT E PO SCH (10:00)
[2017-09-19] MEDS ORDERED: COPPER PO SCH (10:00)
[2017-09-19] MEDS ORDERED: VIT C PO SCH (10:00)
[2017-09-19] MEDS ORDERED: ZINC PO SCH (10:00)
== END 2017-09-19 09:00 | disposition home or self-care (01) ==
LOC: ED 16:52 → MED SURG 23:49
PROVIDERS: ADMIT General Practice; ATTEND General Practice
DX: R11.2 Nausea with vomiting, unspecified (principal); Z79.899 Other long term (current) drug therapy
CPT/HCPCS: 36000; 36415; 70450; 71010; 74176; 80053; 81000; 83605; 85025; 87040; 87070; 87086; 87430; 87631; 96360; 96361; 96365; 96374; 96375; 99285; G0378; J0696; J2405; J3010; A9270-GY

== ENCOUNTER 2020-08-15 08:29 | Emergency (ER) | payer MEDICARE ==
[2020-08-15] MEDS ORDERED: MORPHINE SULFATE 2 MG INJ IV ONE (09:04)
[2020-08-15] MEDS ORDERED: Zofran 4 MG/2 ML VIAL IV ONE (09:05)
[2020-08-15] MEDS ORDERED: MORPHINE SULFATE 4 MG INJ ONE ×2 (09:06→09:42)
[2020-08-15] MEDS ORDERED: Zofran 4 MG/2 ML VIAL ONE (09:06)
--- NOTE | 2020-08-15 09:27 | ERPHSYRPT ---
- History of Present Illness Time Seen by Provider: 08/15/20 08:40 Source: patient Patient Subjective Stated Complaint: pt reports two mornings ago she woke and was walking through the kitchen when her left ankle began to tingle, states the pain started to move up her left leg into her hip. pt states the pain has been severe since that time, pt reports difficulty lifting her leg. pt denies any injury or accident. pt reports history of spinal stenosis with most recent back surgery in 2016. Triage Nursing Assessment: pt aox3, pupils perrl, pt tearful upon exam, appears in pain, pt able to stand and pivot to sitting position on cot, afebrile, resps easy and non labored, radial pulses strong and equal, cap refill < 3 seconds, pt skin pink warm dry. no deformity noted to extremity, pedal pulses palpable bilat, pt ROM limited due to pain, pt sensation intact. skin is unremarkable. Physician History: Patient is a 89-year-old female presents to our ED with complaints of left hip pain. Pain started approximately 2 days ago. Patient states she was walking into her kitchen when she felt a tingling in her leg. Patient states symptoms progressively went up her leg. Patient now experiencing left hip ache. Pain is constant. Pain is worse with movement. Pain improved with rest. No trauma. No fever. Patient admits to history of the same. Patient states she has a history of spinal stenosis. No lower extremity weakness. No nausea or vomiting. No diarrhea. No abdominal pain. No recent back procedure. No saddle anesthesia. No change in bowel bladder function. No associated chest pain. No shortness of breath. Patient voices no other complaints or concerns at this time. Method of Injury: other ([place]) Occurred: days ago (Is ago) Quality: constant Severity of Pain-Max: moderate Severity of Pain-Current: moderate Lower Extremities Pain: hip: left Modifying Factors: Improves With: immobilization, movement, pain medication Associated Symptoms: No dizzy, No fainted, No seizure, No snapping sensation, No popping sensation Allergies/Adverse Reactions: erythromycin base Allergy (Verified 08/15/20 08:58) Itching iodine Allergy (Verified 08/15/20 08:58) Hives meloxicam Allergy (Verified 08/15/20 08:58) Hives methotrexate Allergy (Verified 08/15/20 08:58) Hives metoclopramide HCl [From Reglan] Allergy (Verified 08/15/20 08:58) Itching primidone [From Mysoline] Allergy (Verified 08/15/20 08:58) Hives methylprednisolone [From Medrol] Adverse Reaction (Verified 08/15/20 08:58) hair loss Home Medications: Acetaminophen [Tylenol Extra Strength] 2 tab PO Q4H PRN PRN 09/14/15 [History] Brimonidine Tartrate/Timolol [Combigan 0.2%-0.5% Eye Drops] 2 drop OP BID 09/14/15 [History] Dextran 70/Hypromellose [Artificial Tears] 1 drop OP QID 09/14/15 [History] Esomeprazole Magnesium [Nexium] 40 mg PO DAILY 09/14/15 [History] Folic Acid/Multivit,Iron,Activities Volunteer [One Daily Complete Tablet] 1 each PO DAILY 09/14/15 [History] Hydrocodone Bit/Acetaminophen [[place] 5-325 Tablet] 7.5 each PO Q6H PRN PRN 09/14/15 [History] Meclizine HCl [Antivert] 12.5 mg PO QID PRN PRN 09/14/15 [History] Polyethylene Glycol 3350 17 gm [Miralax Powder 17GM PACKET] 17 gm PO DAILY 09/14/15 [History] Vit A/Vit C/Vit E/Zinc/Copper [Icaps Areds Formula Dr Tablet] 1 each PO DAILY 09/14/15 [History] Gabapentin 300 mg PO 1700 09/18/17 [History] Calcium Carbonate/Vitamin D3 [Calcium 600-Vit D3 200 Tablet] 1 each PO DAILY 08/15/20 [History] Melatonin/Pyridoxine HCl (B6) [Melatonin 3 mg Tablet] 1 each PO HS 08/15/20 [History] Sertraline HCl 50 mg PO DAILY 08/15/20 [History] Hx Tetanus, Diphtheria Vaccination/Date Given: Yes Hx Influenza Vaccination/Date Given: No Hx Pneumococcal Vaccination/Date Given: Yes Immunizations Up to Date: Yes Travel Risk - International Travel Have you traveled outside of the country in past 3 weeks: No - Coronavirus Screening Are you exhibiting any of the following symptoms?: No Close contact with a COVID-19 positive Pt in past 14-21 Days: No - Review of Systems Constitutional: No Symptoms, No Fever, No Chills Eyes: No Symptoms Ears, Nose, & Throat: No Symptoms Respiratory: No Symptoms, No Cough, No Dyspnea Cardiac: No Symptoms, No Chest Pain, No Edema, No Syncope Abdominal/Gastrointestinal: No Symptoms, No Abdominal Pain, No Nausea, No Vomiting, No Diarrhea Genitourinary Symptoms: No Symptoms, No Dysuria Musculoskeletal: No Symptoms, Injury, No Back Pain, No Neck Pain Skin: No Rash Neurological: No Symptoms, No Dizziness, No Focal Weakness, No Sensory Changes Psychological: No Symptoms Endocrine: No Symptoms Hematologic/Lymphatic: No Symptoms Immunological/Allergic: No Symptoms All Other Systems: Reviewed and Negative - Past Medical History Pertinent Past Medical History: Yes ENT History: Cataracts, Glaucoma Musculoskeletal History: Degenerative Disk Disease GI Medical History: GERD - Past Surgical History Past Surgical History: Yes Musculoskeletal: Orthopedic Surgery Female Surgical History: Hysterectomy Other Surgical History: cataracts, glaucoma, left bone spur, right rotator cuff, right knee orthoscopic, rectal. back surgery 2016 r/t spinal stenosis - Social History Smoking Status: Never smoker Exposure to second hand smoke: No Drug Use: none Patient Lives Alone: Yes - Female History Hx Now: No - Nursing Vital Signs Nursing Vital Signs: Initial Vital Signs Temperature 97.6 F 08/15/20 08:39 Pulse Rate 61 08/15/20 08:39 Respiratory Rate 20 08/15/20 08:39 Blood Pressure 172/95 08/15/20 08:39 O2 Sat by Pulse Oximetry 98 08/15/20 08:39 Pain Scale Pain Intensity 8 - Physical Exam General Appearance: no apparent distress, alert Eyes, Ears, Nose, Throat Exam: moist mucous membranes Neck Exam: non-tender, supple Cardiovascular/Respiratory Exam: chest non-tender, normal breath sounds, regular rate/rhythm, no respiratory distress Gastrointestinal/Abdominal Exam: non-tender, guarding Back Exam: normal inspection, No vertebral tenderness Hips Exam: right: non-tender, normal inspection, normal range of motion, no evidence of injury, bone tenderness, left: pain, other (Left hip pain worse with logroll of the leg. No pain with heel tap.) Legs Exam: bilateral leg: non-tender, normal inspection, normal range of motion, no evidence of injury Knees Exam: bilateral knee: non-tender, normal inspection, normal range of motion, no evidence of injury Ankle Exam: bilateral ankle: non-tender, normal inspection, normal range of motion, no evidence of injury Foot Exam: bilateral foot: non-tender, normal inspection, normal range of motion, no evidence of injury Neuro/Tendon Exam: normal sensation, normal motor functions Mental Status Exam: alert, oriented x 3, cooperative Skin Exam: normal color, warm, dry SpO2 Interpretation: normal SpO2: 98 O2 Delivery: Room Air Comments: Pain worse with straight leg raise. Left lower extremity is neurovascular intact distally. PT DP pulse palpable. Compartments are soft. Cap refill less than 2 seconds. FHL, EHL, PF, DF intact - Course Nursing assessment & vital signs reviewed: Yes - Radiology Exams L-Spine X-ray Interpretation: Teleradiologist Report (Fractures or dislocations. Spine degenerative joint disease. Osteopenia.) - CT Exams Pelvis CT Interpretation: Tele-radiologist Report (Fatty left inguinal hernia, osteopenia renal cyst) Ordered Tests: Active Orders 24 hr Category Date Time Status LUMBAR SPINE W/O [CT] Stat Exams 08/15/20 09:21 Completed PELVIS WITHOUT CONTRAST [CT] Stat Exams 08/15/20 09:03 Completed Medication Summary Discontinued Medications Generic Name Dose Route Start Last Admin Trade Name Freq PRN Reason Stop Dose Admin Morphine Sulfate 4 mg 08/15/20 09:04 08/15/20 09:07 Morphine Sulfate 2 Mg Inj IV 08/15/20 09:05 4 mg STAT ONE Administration Morphine Sulfate Confirm 08/15/20 09:06 Morphine Sulfate 4 Mg Inj Administered 08/15/20 09:07 Dose 4 mg .ROUTE .STK-MED ONE Morphine Sulfate 4 mg 08/15/20 09:40 08/15/20 09:43 Morphine Sulfate 4 Mg Inj IV 08/15/20 09:41 4 mg STAT ONE Administration Morphine Sulfate Confirm 08/15/20 09:42 Morphine Sulfate 4 Mg Inj Administered 08/15/20 09:43 Dose 4 mg .ROUTE .STK-MED ONE Ondansetron HCl 4 mg 08/15/20 09:05 08/15/20 09:07 Zofran 4 Mg/2 Ml Vial IV 08/15/20 09:06 4 mg STAT ONE Administration Ondansetron HCl Confirm 08/15/20 09:06 Zofran 4 Mg/2 Ml Vial Administered 08/15/20 09:07 Dose 4 mg .ROUTE .STK-MED ONE - Progress Progress: improved Progress Note: 08/15/20 10:10 Patient reassessed. Pain improved. Counseled pt/family regarding: diagnosis, need for follow-up, rad results - Departure Departure Disposition: Home Clinical Impression: Sciatica, Hip pain Condition: Stable Critical Care Time: No Referrals: KEYANNA CHURCH MD [Primary Care Provider] - Additional Instructions: Discharge/Care Plan JORGE SWEENEY was seen on 08/15/20 in the Emergency Room. The patient was counseled regarding Diagnosis,Lab results, Imaging studies, need for follow up and when to return to the Emergency Room. Prescriptions given: Discharge Note I have spoken with the patient and/or caregivers. I have explained the patient's condition, diagnosis and treatment plan based on the information available to me at this time. I have answered the patient's and/or caregiver's questions and addressed any concerns. The patient and/or caregivers have as good understanding of the patient's diagnosis, condition and treatment plan as can be expected at this point. The vital signs have been stable. The patient's condition is stable and appropriate for discharge from the emergency department. The patient will pursue further outpatient evaluation with the primary care physician or other designated or consulting physician as outlined in the discharge instructions. The patient and/or caregivers are agreeable to this plan of care and follow-up instructions have been explained in detail. The patient and/or caregivers have received these instruction. The patient/and or caregivers are aware that any significant change in condition or worsening of symptoms should prompt an immediate return to this or the closest emergency department or call 911.
[2020-08-15] MEDS ORDERED: MORPHINE SULFATE 4 MG INJ IV ONE (09:40)
--- NOTE | 2020-08-15 09:58 | XRAY ---
Indication: Left low back and left hip pain radiating left leg. Multiple contiguous axial images obtained through the pelvis with special attention to the osseous structures. Two-dimensional sagittal and coronal reformatted images obtained. Comparison: September 17, 2017. Osseous structures remain demineralized. Stable degenerative changes of the visualized lower lumbar spine and both hips. Stable small bilateral trochanteric spurring. No acute fracture, dislocation, or suspicious bony lesions. Stable small fatty left inguinal hernia, small right gluteal calcified injection granuloma, and hysterectomy. Remaining visualized noncontrasted soft tissues including pelvic contents are unremarkable. Impression: Stable osteopenia, degenerative changes, and fatty left inguinal hernia. No new or acute findings.
--- NOTE | 2020-08-15 10:01 | XRAY ---
Indication: Left low back and left hip pain radiating left leg. Multiple contiguous axial images obtained through the lumbar spine. Two-dimensional sagittal and coronal reformatted images obtained. Comparison: September 17, 2017. Osseous structures remain demineralized again with right L4-L5 hemilaminectomy. Axial images negative for acute fracture, suspicious bony lesions, large disc herniation, or spinal canal stenosis. Stable mild/moderate multilevel degenerative disc disease again greatest at the L4-S1 levels. Sagittal and coronal reformatted images again demonstrates normal lumbar alignment with L4-S1 disc space loss. Stable small left peripelvic renal cysts. Remaining visualized noncontrasted soft tissues including pelvic contents are unremarkable. Impression: Stable osteopenia, multilevel degenerative disc disease, right L4-L5 hemilaminectomy, and left renal cysts. No new or acute findings. Outpatient MRI may yield further information if there remains clinical concern.
[2020-08-15 11:06] VITALS: BP 134/70; PULSE 61; O2SAT 97
== END 2020-08-15 11:06 | disposition home or self-care (01) ==
LOC: ED 08:29
DX: M54.30 Sciatica, unspecified side (principal); M25.552 Pain in left hip
CPT/HCPCS: 36000; 72131; 72192; 96374; 96375; 96376; 99284; J2270; J2405

== ENCOUNTER 2020-08-16 10:02 | Inpatient (IN) | payer MEDICARE ==
[2020-08-16] MEDS ORDERED: Cardizem IV 50 MG/10 ML IV ONE ×2 (10:18→10:23)
[2020-08-16] MEDS: Sodium Chloride 0.9% 1000 ML 1,000 ML IV SCH ×3 (10:24→16:18)
--- NOTE | 2020-08-16 10:25 | ERPHSYRPT ---
- History of Present Illness Time Seen by Provider: 08/16/20 10:20 Source: patient, EMS Exam Limitations: no limitations Physician History: This is an 89-year-old white female who is a patient of Dr. Church (primary care physician) and Dr. Campuzano (loin trimmer) and has a history of chronic left hip and lower leg pain. She was seen in this emergency department yesterday and underwent lumbar spine x-ray as well as CAT scan of the bony pelvis. There was no evidence of any acute fracture or subluxation/dislocation. Patient has [place] 7.5 medication at home. Patient was given a total of 8 mg of morphine intravenously while in the emergency department yesterday. Today, the patient states that she has continued significant pain in the left hip despite no acute trauma. Patient called the ambulance to be transported back to the emergency department because of the pain in the left hip. However, what was found in this patient was that she had a rapid heart rate in the 160s to 170 range and appeared to have atrial fibrillation with RVR. Patient states that she might of noticed her heart rate being more rapid this morning. However, she does not have any chest pain per her report. Patient has a history of spinal stenosis. Timing/Duration: today Severity: moderate Modifying Factors: Improves With: nothing Associated Symptoms: denies symptoms Allergies/Adverse Reactions: erythromycin base Allergy (Verified 08/16/20 11:04) Itching iodine Allergy (Verified 08/16/20 11:04) Hives meloxicam Allergy (Verified 08/16/20 11:04) Hives methotrexate Allergy (Verified 08/16/20 11:04) Hives metoclopramide HCl [From Reglan] Allergy (Verified 08/16/20 11:04) Itching primidone [From Mysoline] Allergy (Verified 08/16/20 11:04) Hives methylprednisolone [From Medrol] Adverse Reaction (Verified 08/16/20 11:04) hair loss Home Medications: Acetaminophen [Tylenol Extra Strength] 2 tab PO Q4H PRN PRN 09/14/15 [History] Brimonidine Tartrate/Timolol [Combigan 0.2%-0.5% Eye Drops] 2 drop OP BID 09/14/15 [History] Dextran 70/Hypromellose [Artificial Tears] 1 drop OP QID 09/14/15 [History] Esomeprazole Magnesium [Nexium] 40 mg PO DAILY 09/14/15 [History] Folic Acid/Multivit,Iron,[place] [One Daily Complete Tablet] 1 each PO DAILY 09/14/15 [History] Hydrocodone Bit/Acetaminophen [[place] 5-325 Tablet] 7.5 each PO Q6H PRN PRN 09/14/15 [History] Meclizine HCl [Antivert] 12.5 mg PO QID PRN PRN 09/14/15 [History] Polyethylene Glycol 3350 17 gm [Miralax Powder 17GM PACKET] 17 gm PO DAILY 09/14/15 [History] Vit A/Vit C/Vit E/Zinc/Copper [Icaps Areds Formula Dr Tablet] 1 each PO DAILY 09/14/15 [History] Gabapentin 300 mg PO 1700 09/18/17 [History] Calcium Carbonate/Vitamin D3 [Calcium 600-Vit D3 200 Tablet] 1 each PO DAILY 08/15/20 [History] Melatonin/Pyridoxine HCl (B6) [Melatonin 3 mg Tablet] 1 each PO HS 08/15/20 [History] Sertraline HCl 50 mg PO DAILY 08/15/20 [History] Hx Tetanus, Diphtheria Vaccination/Date Given: Yes Hx Influenza Vaccination/Date Given: No Hx Pneumococcal Vaccination/Date Given: Yes Travel Risk - International Travel Have you traveled outside of the country in past 3 weeks: No - Coronavirus Screening Are you exhibiting any of the following symptoms?: No Close contact with a COVID-19 positive Pt in past 14-21 Days: No - Review of Systems Constitutional: No Symptoms Eyes: No Symptoms Ears, Nose, & Throat: No Symptoms Respiratory: No Symptoms Cardiac: Palpitations Abdominal/Gastrointestinal: No Symptoms Genitourinary Symptoms: No Symptoms Musculoskeletal: Other (Left hip and lower lumbar pain (chronic)) Skin: No Symptoms Neurological: No Symptoms Psychological: No Symptoms Endocrine: No Symptoms Hematologic/Lymphatic: No Symptoms Immunological/Allergic: No Symptoms All Other Systems: Reviewed and Negative - Past Medical History Pertinent Past Medical History: Yes Neurological History: No Pertinent History ENT History: Cataracts, Glaucoma Cardiac History: No Pertinent History Respiratory History: No Pertinent History Endocrine Medical History: No Pertinent History Musculoskeletal History: Degenerative Disk Disease GI Medical History: No Pertinent History, GERD History: No Pertinent History Psycho-Social History: No Pertinent History Female Reproductive Disorders: No Pertinent History - Past Surgical History Past Surgical History: Yes Neuro Surgical History: No Pertinent History Cardiac: No Pertinent History Respiratory: No Pertinent History Gastrointestinal: No Pertinent History Genitourinary: No Pertinent History Musculoskeletal: Orthopedic Surgery Female Surgical History: Hysterectomy Other Surgical History: cataracts, glaucoma, left bone spur, right rotator cuff, right knee orthoscopic, rectal. back surgery 2016 r/t spinal stenosis - Social History Smoking Status: Never smoker Exposure to second hand smoke: No Drug Use: none Patient Lives Alone: Yes - Nursing Vital Signs Nursing Vital Signs: Initial Vital Signs Temperature 98.1 F 08/16/20 10:46 Pulse Rate 180 H 08/16/20 10:46 Respiratory Rate 23 08/16/20 10:46 Blood Pressure 68/60 08/16/20 10:46 O2 Sat by Pulse Oximetry 95 08/16/20 10:46 Pain Scale Pain Intensity 7 - Physical Exam General Appearance: mild distress, alert, anxiety, thin Eye Exam: PERRL/EOMI, eyes nml inspection Ears, Nose, Throat Exam: normal ENT inspection, moist mucous membranes Neck Exam: normal inspection, non-tender, supple, full range of motion Respiratory Exam: normal breath sounds, lungs clear, airway intact, No chest tenderness, No respiratory distress Cardiovascular Exam: tachycardia, irregular Gastrointestinal/Abdomen Exam: soft, normal bowel sounds, No tenderness Pelvic Exam: not done Rectal Exam: not done Back Exam: normal inspection, decreased range of motion Extremity Exam: normal inspection, pelvis stable, limited range of motion (Hip on left side), tenderness (Left hip) Neurologic Exam: alert, oriented x 3, cooperative, esl tutor II-XII nml as tested Skin Exam: normal color, warm, dry Lymphatic Exam: No adenopathy SpO2 Interpretation: normal O2 Delivery: Room Air - Course Nursing assessment & vital signs reviewed: Yes EKG Interpreted by Me: RATE (180), A-fib, Other (No comparison EKG available. Patient has atrial fibrillation with RVR.) Ordered Tests: Active Orders 24 hr Category Date Time Status Machine Packager STAT Care 08/16/20 10:18 Active EKG-ER Only STAT Care 08/16/20 10:18 Active EKG-ER Only STAT Care 08/16/20 10:30 Active IV Insertion STAT Care 08/16/20 10:18 Active IV Insertion-2nd Peripheral STAT Care 08/16/20 10:49 Active Pulse Oximetry (ED) STAT Care 08/16/20 10:18 Active CBC W DIFF Stat Lab 08/16/20 10:40 Completed CMP Stat Lab 08/16/20 10:40 Completed MAGNESIUM Stat Lab 08/16/20 10:40 Completed NT PRO BNP Stat Lab 08/16/20 10:40 Completed PROTIME WITH INR Stat Lab 08/16/20 10:40 Completed TROPONIN Q3H Lab 08/16/20 10:40 Completed TROPONIN Q3H Lab 08/16/20 13:30 Ordered TROPONIN Q3H Lab 08/16/20 16:30 Ordered TROPONIN Q3H Lab 08/16/20 19:30 Ordered TROPONIN Q3H Lab 08/16/20 22:30 Ordered UA W/RFX UR CULTURE Stat Lab 08/16/20 10:18 Uncollected Transfer Order Routine Transfer 08/16/20 Ordered Medication Summary Generic Name Dose Route Start Last Admin Trade Name Freq PRN Reason Stop Dose Admin Sodium Chloride 1,000 mls @ 100 mls/hr 08/16/20 10:30 08/16/20 10:24 Sodium Chloride 0.9% 1000 Ml IV 09/15/20 10:29 100 mls/hr .Q10H [place] Administration Diltiazem HCl 100 mls @ 5 mls/hr 08/16/20 10:31 08/16/20 11:20 Cardizem Drip 100 Mg/100 Ml D5w IV 09/15/20 10:30 10 mg/hr .Q20H PRN 10 mls/hr HEART RATE/ A-FIB Titration Protocol 5 MG/HR Discontinued Medications Generic Name Dose Route Start Last Admin Trade Name Freq PRN Reason Stop Dose Admin Diltiazem HCl 20 mg 08/16/20 10:18 08/16/20 10:24 Cardizem Iv 50 Mg/10 Ml IV 08/16/20 10:19 20 mg STAT ONE Administration Diltiazem HCl Confirm 08/16/20 10:23 Cardizem Iv 50 Mg/10 Ml Administered 08/16/20 10:24 Dose 50 mg IV .STK-MED ONE Morphine Sulfate 4 mg 08/16/20 10:30 08/16/20 11:04 Morphine Sulfate 4 Mg Inj IV 08/16/20 10:31 4 mg STAT ONE Administration Morphine Sulfate Confirm 08/16/20 11:03 Morphine Sulfate 4 Mg Inj Administered 08/16/20 11:04 Dose 4 mg .ROUTE .STK-MED ONE Ondansetron HCl 4 mg 08/16/20 10:30 08/16/20 11:05 Zofran 4 Mg/2 Ml Vial IV 08/16/20 10:31 4 mg STAT ONE Administration Ondansetron HCl Confirm 08/16/20 11:03 Zofran 4 Mg/2 Ml Vial Administered 08/16/20 11:04 Dose 4 mg .ROUTE .STK-MED ONE Lab/Rad Data: Laboratory Result Diagrams 08/16/20 10:40 08/16/20 10:40 Laboratory Results 08/16/20 08/16/20 08/16/20 Range/Units 10:40 10:40 10:40 WBC (4.0-10.5) K/mm3 RBC (4.1-5.4) M/mm3 Hgb (12.0-16.0) gm/dl Hct (35-47) % MCV (78-100) fl MCH (26-32) pg MCHC (32-36) g/dl RDW (11.5-14.0) % Plt Count (150-450) K/mm3 MPV (7.5-11.0) fl Gran % (36.0-66.0) % Eos # (Auto) (0-0.5) Absolute Lymphs (auto) (1.0-4.6) Absolute Monos (auto) (0.0-1.3) Lymphocytes % (24.0-44.0) % Monocytes % (0.0-12.0) % Eosinophils % (0.00-5.0) % Basophils % (0.0-0.4) % Absolute Granulocytes (1.4-6.9) Basophils # (0-0.4) PT 12.1 (9.95-12.35) SECONDS INR 1.07 (0.8-3.0) Sodium 135 L (137-145) mmol/L Potassium 4.2 (3.5-5.1) mmol/L Chloride 101 (98-107) mmol/L Carbon Dioxide 23 (22-30) mmol/L Anion Gap 15.0 (5-15) MEQ/L BUN 20 H (7-17) mg/dL Creatinine 0.88 (0.52-1.04) mg/dL Estimated GFR > 60.0 ML/MIN Glucose 112 H (74-106) mg/dL Calcium 9.6 (8.4-10.2) mg/dL Magnesium 1.8 (1.6-2.3) mg/dL Total Bilirubin 0.70 (0.2-1.3) mg/dL AST 34 (14-36) U/L ALT 13 (0-35) U/L Alkaline Phosphatase 75 (38-126) U/L Troponin I 0.016 (0.000-0.034) ng/mL NT-Pro-B Natriuret Pep 728 (0-1800) pg/mL Serum Total Protein 7.6 (6.3-8.2) g/dL Albumin 4.5 (3.5-5.0) g/dL 08/16/20 Range/Units 10:40 WBC 5.5 (4.0-10.5) K/mm3 RBC 4.38 (4.1-5.4) M/mm3 Hgb 13.4 (12.0-16.0) gm/dl Hct 41.3 (35-47) % MCV 94.3 (78-100) fl MCH 30.6 (26-32) pg MCHC 32.4 (32-36) g/dl RDW 13.5 (11.5-14.0) % Plt Count 225 (150-450) K/mm3 MPV 10.9 (7.5-11.0) fl Gran % 74.5 H (36.0-66.0) % Eos # (Auto) 0.02 (0-0.5) Absolute Lymphs (auto) 0.94 L (1.0-4.6) Absolute Monos (auto) 0.41 (0.0-1.3) Lymphocytes % 17.2 L (24.0-44.0) % Monocytes % 7.5 (0.0-12.0) % Eosinophils % 0.4 (0.00-5.0) % Basophils % 0.4 (0.0-0.4) % Absolute Granulocytes 4.07 (1.4-6.9) Basophils # 0.02 (0-0.4) PT (9.95-12.35) SECONDS INR (0.8-3.0) Sodium (137-145) mmol/L Potassium (3.5-5.1) mmol/L Chloride (98-107) mmol/L Carbon Dioxide (22-30) mmol/L Anion Gap (5-15) MEQ/L BUN (7-17) mg/dL Creatinine (0.52-1.04) mg/dL Estimated GFR ML/MIN Glucose (74-106) mg/dL Calcium (8.4-10.2) mg/dL Magnesium (1.6-2.3) mg/dL Total Bilirubin (0.2-1.3) mg/dL AST (14-36) U/L ALT (0-35) U/L Alkaline Phosphatase (38-126) U/L Troponin I (0.000-0.034) ng/mL NT-Pro-B Natriuret Pep (0-1800) pg/mL Serum Total Protein (6.3-8.2) g/dL Albumin (3.5-5.0) g/dL - Progress Progress: improved, pain not gone completely, re-examined Progress Note: 08/16/20 10:33 Repeat (second) twelve-lead EKG performed on 08/16/2020 at 1030 after a 20 mg intravenous bolus of Cardizem. The rate is now normal. There are no obvious acute ischemic changes present. 08/16/20 12:02 Medical decision making: I spoke with Dr. Church, the patient's PCP, and admit the patient to an ICU bed. This patient has new onset atrial fibrillation with RVR as well as intractable left hip pain. I reviewed the patient's laboratory data as well as EKG findings. Discussed with : Tashi Counseled pt/family regarding: lab results, diagnosis - Departure Departure Disposition: Observation Clinical Impression: Atrial fibrillation with RVR, Chronic left hip pain Condition: Stable Critical Care Time: Yes Critical Care Time(excluding separately billable procedures): Critical 30-74 mins Referrals: KEYANNA CHURCH MD [Primary Care Provider] -
[2020-08-16] MEDS ORDERED: Zofran 4 MG/2 ML VIAL IV ONE (10:30)
[2020-08-16] MEDS ORDERED: MORPHINE SULFATE 4 MG INJ IV ONE (10:30)
[2020-08-16] MEDS ORDERED: CARDIZEM DRIP 100 MG/100 ML D5W 100 ML IV PRN (10:31)
[2020-08-16] MEDS ORDERED: MORPHINE SULFATE 4 MG INJ ONE (11:03)
[2020-08-16] MEDS ORDERED: Zofran 4 MG/2 ML VIAL ONE (11:03)
[2020-08-16 11:04] LABS: Absolute Neutrophil Ct (ANC) 4.07 (1.4-6.9); BASOPHIL % 0.4 % (0.0-0.4); Basophil (Absolute #) 0.02 (0-0.4); Eosinophil % 0.4 % (0.00-5.0); Eosinophil (Absolute #) 0.02 (0-0.5); Hematocrit 41.3 % (35-47); Hemoglobin 13.4 gm/dl (12.0-16.0); Lymphocyte (Absolute #) 0.94 (1.0-4.6); Lymphocytes % 17.2 % (24.0-44.0); Mean Cell Volume 94.3 fl (78-100); Mean Corpuscular Hemoglobin 30.6 pg (26-32); Mean Corpuscular Hgb Concent. 32.4 g/dl (32-36); Mean Platelet Volume 10.9 fl (7.5-11.0); Monocyte (Absolute #) 0.41 (0.0-1.3); Monocytes % 7.5 % (0.0-12.0); Neutrophil % 74.5 % (36.0-66.0); Platelet Count 225 K/mm3 (150-450); Red Blood Count 4.38 M/mm3 (4.1-5.4); Red Cell Distribution Width 13.5 % (11.5-14.0); White Blood Count 5.5 K/mm3 (4.0-10.5)
[2020-08-16 11:07] LABS: INR 1.07 (0.8-3.0); PROTIME 12.1 SECONDS (9.95-12.35)
[2020-08-16 11:20] LABS: ALBUMIN 4.5 g/dL (3.5-5.0); ALKALINE PHOSPHATASE 75 U/L (38-126); BLOOD UREA NITROGEN 20 mg/dL (7-17); CHLORIDE 101 mmol/L (98-107); Calcium 9.6 mg/dL (8.4-10.2); Carbon Dioxide 23 mmol/L (22-30); Creatinine 1 0.88 mg/dL (0.52-1.04); EST GLOMERULAR FILTRATION RATE > 60.0 ML/MIN; Glucose 112 mg/dL (74-106); MAGNESIUM 1.8 mg/dL (1.6-2.3); NT PRO BNP 728 pg/mL (0-1800); Potassium 4.2 mmol/L (3.5-5.1); SGOT/AST 34 U/L (14-36); SGPT/ALT 13 U/L (0-35); SODIUM 135 mmol/L (137-145); Total Protein 7.6 g/dL (6.3-8.2)
[2020-08-16] MEDS ORDERED: Zofran 4 MG/2 ML VIAL IV PRN (12:41)
[2020-08-16] MEDS ORDERED: TYLENOL 325 MG PO PRN (12:41)
[2020-08-16] MEDS ORDERED: FLUZONE HIGH-DOSE QUAD 2020-21 IM ONE (12:54)
[2020-08-16 13:37] LABS: Appearance CLEAR (CLEAR); Bacteria RARE /HPF (NEGATIVE); Bilirubin NEGATIVE (NEGATIVE); Blood SMALL Ery/ul (0-5); Glucose NEGATIVE (NEGATIVE); Ketones SMALL (NEGATIVE); Leukocyte Esterase NEGATIVE (NEGATIVE); Mucus SLIGHT /HPF (NEGATIVE); Nitrite NEGATIVE (NEGATIVE); Protein,Urine Dip 30 (Negative); RBC 0-2 /HPF (0-2); Urobilinogen NEGATIVE mg/dL (0-1)
[2020-08-16 14:11] LABS: Hematocrit 38.9 % (35-47); Hemoglobin 12.5 gm/dl (12.0-16.0); Mean Cell Volume 95.3 fl (78-100); Mean Corpuscular Hemoglobin 30.6 pg (26-32); Mean Corpuscular Hgb Concent. 32.1 g/dl (32-36); Mean Platelet Volume 10.5 fl (7.5-11.0); Platelet Count 193 K/mm3 (150-450); Red Blood Count 4.08 M/mm3 (4.1-5.4); Red Cell Distribution Width 13.4 % (11.5-14.0); White Blood Count 5.3 K/mm3 (4.0-10.5)
[2020-08-16] MEDS ORDERED: MECLIZINE HCL 12.5 MG PO PRN (14:45)
[2020-08-16] MEDS ORDERED: NORCO 5/325 MG PO PRN (14:45)
[2020-08-16 14:59] LABS: ANION GAP 11.2 MEQ/L (5-15); BLOOD UREA NITROGEN 18 mg/dL (7-17); CHLORIDE 101 mmol/L (98-107); Calcium 9.1 mg/dL (8.4-10.2); Carbon Dioxide 28 mmol/L (22-30); Creatinine 1 0.81 mg/dL (0.52-1.04); EST GLOMERULAR FILTRATION RATE > 60.0 ML/MIN; Glucose 110 mg/dL (74-106); PREALBUMIN 24.39 mg/dL (17.6-36.0); Potassium 5.1 mmol/L (3.5-5.1); SODIUM 135 mmol/L (137-145)
[2020-08-16] MEDS ORDERED: ANTIVERT 25 MG PO PRN (15:11)
[2020-08-16] MEDS ORDERED: MEDICATION INTERVENTION MC SCH (15:30)
[2020-08-16] MEDS: PLAVIX 75 MG Tablet PO SCH (16:10)
[2020-08-16] MEDS: Protonix 40MG Tablet PO SCH (16:10)
[2020-08-16] MEDS: NEURONTIN 300 MG PO SCH ×2 (16:10→20:45)
[2020-08-16] MEDS: Toprol Xl 50 MG PO SCH (16:11)
[2020-08-16] MEDS: Miralax Powder 17GM PACKET PO SCH (16:11)
[2020-08-16] MEDS: ZOLOFT 50 MG TABLET PO SCH (16:11)
[2020-08-16] MEDS: Cardizem CD 120 MG PO SCH (16:11)
[2020-08-16] MEDS: MORPHINE SULFATE 2 MG INJ IV PRN ×2 (16:11→20:45)
--- NOTE | 2020-08-16 17:23 | PCM.HP ---
History of Present Illness - Chief Complaint Chief Complaint: Chronic left hip pain History of Present Illness: is a 89 year old female. has a history of chronic left hip and lower leg pain. She was seen in this emergency department yesterday and underwent lumbar spine x-ray as well as CAT scan of the bony pelvis. There was no evidence of any acute fracture or subluxation/dislocation. Patient has [place] 7.5 medication at home. Patient was given a total of 8 mg of morphine intr avenously while in the emergency department yesterday. Today, the patient states that she has continued significant pain in the left hip despite no acute trauma. Patient called the ambulance to be transported back to the emergency department because of the pain in the left hip. However, what was found in this patient was that she had a rapid heart rate in the 160s to 170 range and appeared to have atrial fibrillation with RVR. Patient states that she might of noticed her heart rate being more rapid this morning. However, she does not have any chest pain per her report. Patient has a history of spinal stenosis. Timing/Duration: today Severity: moderate Modifying Factors: Improves With: nothing Associated Symptoms: denies symptoms - Review of Systems Constitutional: No Fever, No Chills Eyes: No Symptoms Ears, Nose, & Throat: No Symptoms Respiratory: No Cough, No Short Of Breath Cardiac: No Chest Pain, No Edema, No Syncope Abdominal/Gastrointestinal: No Abdominal Pain, No Nausea, No Vomiting, No Diarrhea Genitourinary Symptoms: No Dysuria Musculoskeletal: Back Pain, Joint Pain, No Neck Pain Skin: No Rash Neurological: No Dizziness, No Focal Weakness, No Sensory Changes Psychological: No Symptoms Endocrine: No Symptoms Hematologic/Lymphatic: No Symptoms Immunological/Allergic: No Symptoms Medications & Allergies Home Medications: Home Medication List Acetaminophen [Tylenol Extra Strength] 2 tab PO Q4H PRN PRN 09/14/15 [History Confirmed 08/16/20] Esomeprazole Magnesium [Nexium] 40 mg PO DAILY 09/14/15 [History Confirmed 08/16/20] Hydrocodone Bit/Acetaminophen [[place] 5-325 Tablet] 7.5 each PO Q6H PRN PRN 09/14/15 [History Confirmed 08/16/20] Meclizine HCl [Antivert] 12.5 mg PO QID PRN PRN 09/14/15 [History Confirmed 08/16/20] Polyethylene Glycol 3350 17 gm [Miralax Powder 17GM PACKET] 17 gm PO DAILY 09/14/15 [History Confirmed 08/16/20] Vit A/Vit C/Vit E/Zinc/Copper [Icaps Areds Formula Dr Tablet] 1 each PO DAILY 09/14/15 [History Confirmed 08/16/20] Gabapentin 300 mg PO TID 09/18/17 [History Confirmed 08/16/20] Calcium Carbonate/Vitamin D3 [Calcium 600-Vit D3 200 Tablet] 1 each PO BID 08/15/20 [History Confirmed 08/16/20] Melatonin/Pyridoxine HCl (B6) [Melatonin 3 mg Tablet] 1 each PO HS 08/15/20 [History Confirmed 08/16/20] Sertraline HCl 50 mg PO DAILY 08/15/20 [History Confirmed 08/15/20] Multivit-Min/FA/Lutein/Zeaxant [Icaps Mv Tablet] 4 each PO DAILY 08/16/20 [History Confirmed 08/16/20] Allergies/Adverse Reactions: Allergies Allergy/AdvReac Type Severity Reaction Status Date / Time influenza virus vacc Allergy Intermediate Verified 08/16/20 12:57 trivalent, split [From Fluzone] erythromycin base Allergy Itching Verified 08/16/20 12:54 iodine Allergy Hives Verified 08/16/20 12:54 meloxicam Allergy Hives Verified 08/16/20 12:54 methotrexate Allergy Hives Verified 08/16/20 12:54 metoclopramide HCl Allergy Itching Verified 08/16/20 12:54 [From Reglan] primidone [From Mysoline] Allergy Hives Verified 08/16/20 12:54 methylprednisolone AdvReac Verified 08/16/20 12:54 [From Medrol] - Past Medical History Past Medical History: Yes Neurological History: No Pertinent History ENT History: Cataracts, Glaucoma Cardiac History: No Pertinent History Respiratory History: No Pertinent History Endocrine Medical History: No Pertinent History Musculoskelatal History: Degenerative Disk Disease GI Medical History: No Pertinent History, GERD History: No Pertinent History Pyscho-Social History: No Pertinent History Reproductive Disorders: No Pertinent History - Female History Are you now?: No - Past Surgical History Past Surgical History: Yes Neuro Surgical History: No Pertinent History Cardiac History: No Pertinent History Respiratory Surgery: No Pertinent History GI Surgical History: No Pertinent History Genitourinary Surgical Hx: No Pertinent History Musculskeletal Surgical Hx: Orthopedic Surgery Female Surgical History: Hysterectomy Other Surgical History: cataracts, glaucoma, left bone spur, right rotator cuff, right knee orthoscopic, rectal. back surgery 2016 r/t spinal stenosis - Social History Smoking Status: Never smoker Exposure to second hand smoke: No Alcohol: None Drug Use: none - Physical Exam Vital Signs: Vital Signs - 24 hr Temp Pulse Pulse Resp BP Pulse Ox 08/16/20 16:00 98.4 F 68 18 116/70 96 08/16/20 12:58 98.1 F 71 18 105/54 96 08/16/20 12:01 74 18 99/83 98 08/16/20 11:05 109 H 16 112/68 98 08/16/20 10:51 96 08/16/20 10:46 98.1 F 180 H 180 H 23 68/60 95 General Appearance: no apparent distress, alert Neurologic Exam: alert, oriented x 3, cooperative, normal mood/affect, nml cerebellar function, nml station & gait, sensation nml, No motor deficits Eye Exam: PERRL/EOMI, eyes nml inspection Ears, Nose, Throat Exam: normal ENT inspection, TMs normal, pharynx normal, moist mucous membranes Neck Exam: normal inspection, non-tender, supple, full range of motion Respiratory Exam: normal breath sounds, lungs clear, No respiratory distress Cardiovascular Exam: regular rate/rhythm, normal heart sounds, normal peripheral pulses Gastrointestinal/Abdomen Exam: soft, normal bowel sounds, No tenderness, No mass Back Exam: normal inspection, normal range of motion, No CVA tenderness, No vertebral tenderness Extremity Exam: normal inspection, normal range of motion, pelvis stable Skin Exam: normal color, warm, dry, No rash Lymphatic Exam: No adenopathy Results - Labs Lab/Micro Results: Lab Results-Last 24 Hours 08/16/20 08/16/20 08/16/20 Range/Units 10:18 10:40 10:40 WBC 5.5 (4.0-10.5) K/mm3 RBC 4.38 (4.1-5.4) M/mm3 Hgb 13.4 (12.0-16.0) gm/dl Hct 41.3 (35-47) % MCV 94.3 (78-100) fl MCH 30.6 (26-32) pg MCHC 32.4 (32-36) g/dl RDW 13.5 (11.5-14.0) % Plt Count 225 (150-450) K/mm3 MPV 10.9 (7.5-11.0) fl Gran % 74.5 H (36.0-66.0) % Eos # (Auto) 0.02 (0-0.5) Absolute Lymphs (auto) 0.94 L (1.0-4.6) Absolute Monos (auto) 0.41 (0.0-1.3) Lymphocytes % 17.2 L (24.0-44.0) % Monocytes % 7.5 (0.0-12.0) % Eosinophils % 0.4 (0.00-5.0) % Basophils % 0.4 (0.0-0.4) % Absolute Granulocytes 4.07 (1.4-6.9) Basophils # 0.02 (0-0.4) PT (9.95-12.35) SECONDS INR (0.8-3.0) Sodium 135 L (137-145) mmol/L Potassium 4.2 (3.5-5.1) mmol/L Chloride 101 (98-107) mmol/L Carbon Dioxide 23 (22-30) mmol/L Anion Gap 15.0 (5-15) MEQ/L BUN 20 H (7-17) mg/dL Creatinine 0.88 (0.52-1.04) mg/dL Estimated GFR > 60.0 ML/MIN Glucose 112 H (74-106) mg/dL Calcium 9.6 (8.4-10.2) mg/dL Magnesium 1.8 (1.6-2.3) mg/dL Total Bilirubin 0.70 (0.2-1.3) mg/dL AST 34 (14-36) U/L ALT 13 (0-35) U/L Alkaline Phosphatase 75 (38-126) U/L Troponin I (0.000-0.034) ng/mL NT-Pro-B Natriuret Pep 728 (0-1800) pg/mL Serum Total Protein 7.6 (6.3-8.2) g/dL Albumin 4.5 (3.5-5.0) g/dL Prealbumin (17.6-36.0) mg/dL Urine Color YELLOW (YELLOW) Urine Appearance CLEAR (CLEAR) Urine pH 5.0 (5-6) Ur Specific [place] 1.020 (1.005-1.025) Urine Protein 30 (Negative) Urine Ketones SMALL (NEGATIVE) Urine Blood SMALL (0-5) Oleg/ul Urine Nitrite NEGATIVE (NEGATIVE) Urine Bilirubin NEGATIVE (NEGATIVE) Urine Urobilinogen NEGATIVE (0-1) mg/dL Ur Leukocyte Esterase NEGATIVE (NEGATIVE) Urine WBC (Auto) 3-5 (0-5) /HPF Urine RBC (Auto) 0-2 (0-2) /HPF U Hyaline Cast (Auto) 6-10 (0-2) /LPF U Epithel Cells (Auto) NONE (FEW) /HPF Urine Bacteria (Auto) RARE (NEGATIVE) /HPF Urine Mucus (Auto) SLIGHT (NEGATIVE) /HPF Urine Culture Reflexed YES (NO) Urine Glucose NEGATIVE (NEGATIVE) mg/dL 08/16/20 08/16/20 08/16/20 Range/Units 10:40 10:40 13:51 WBC (4.0-10.5) K/mm3 RBC (4.1-5.4) M/mm3 Hgb (12.0-16.0) gm/dl Hct (35-47) % MCV (78-100) fl MCH (26-32) pg MCHC (32-36) g/dl RDW (11.5-14.0) % Plt Count (150-450) K/mm3 MPV (7.5-11.0) fl Gran % (36.0-66.0) % Eos # (Auto) (0-0.5) Absolute Lymphs (auto) (1.0-4.6) Absolute Monos (auto) (0.0-1.3) Lymphocytes % (24.0-44.0) % Monocytes % (0.0-12.0) % Eosinophils % (0.00-5.0) % Basophils % (0.0-0.4) % Absolute Granulocytes (1.4-6.9) Basophils # (0-0.4) PT 12.1 (9.95-12.35) SECONDS INR 1.07 (0.8-3.0) Sodium (137-145) mmol/L Potassium (3.5-5.1) mmol/L Chloride (98-107) mmol/L Carbon Dioxide (22-30) mmol/L Anion Gap (5-15) MEQ/L BUN (7-17) mg/dL Creatinine (0.52-1.04) mg/dL Estimated GFR ML/MIN Glucose (74-106) mg/dL Calcium (8.4-10.2) mg/dL Magnesium (1.6-2.3) mg/dL Total Bilirubin (0.2-1.3) mg/dL AST (14-36) U/L ALT (0-35) U/L Alkaline Phosphatase (38-126) U/L Troponin I 0.016 0.129 H* (0.000-0.034) ng/mL NT-Pro-B Natriuret Pep (0-1800) pg/mL Serum Total Protein (6.3-8.2) g/dL Albumin (3.5-5.0) g/dL Prealbumin (17.6-36.0) mg/dL Urine Color (YELLOW) Urine Appearance (CLEAR) Urine pH (5-6) Ur Specific [place] (1.005-1.025) Urine Protein (Negative) Urine Ketones (NEGATIVE) Urine Blood (0-5) Oleg/ul Urine Nitrite (NEGATIVE) Urine Bilirubin (NEGATIVE) Urine Urobilinogen (0-1) mg/dL Ur Leukocyte Esterase (NEGATIVE) Urine WBC (Auto) (0-5) /HPF Urine RBC (Auto) (0-2) /HPF U Hyaline Cast (Auto) (0-2) /LPF U Epithel Cells (Auto) (FEW) /HPF Urine Bacteria (Auto) (NEGATIVE) /HPF Urine Mucus (Auto) (NEGATIVE) /HPF Urine Culture Reflexed (NO) Urine Glucose (NEGATIVE) mg/dL 08/16/20 08/16/20 Range/Units 13:51 13:51 WBC 5.3 (4.0-10.5) K/mm3 RBC 4.08 L (4.1-5.4) M/mm3 Hgb 12.5 (12.0-16.0) gm/dl Hct 38.9 (35-47) % MCV 95.3 (78-100) fl MCH 30.6 (26-32) pg MCHC 32.1 (32-36) g/dl RDW 13.4 (11.5-14.0) % Plt Count 193 (150-450) K/mm3 MPV 10.5 (7.5-11.0) fl Gran % (36.0-66.0) % Eos # (Auto) (0-0.5) Absolute Lymphs (auto) (1.0-4.6) Absolute Monos (auto) (0.0-1.3) Lymphocytes % (24.0-44.0) % Monocytes % (0.0-12.0) % Eosinophils % (0.00-5.0) % Basophils % (0.0-0.4) % Absolute Granulocytes (1.4-6.9) Basophils # (0-0.4) PT (9.95-12.35) SECONDS INR (0.8-3.0) Sodium 135 L (137-145) mmol/L Potassium 5.1 D (3.5-5.1) mmol/L Chloride 101 (98-107) mmol/L Carbon Dioxide 28 (22-30) mmol/L Anion Gap 11.2 (5-15) MEQ/L BUN 18 H (7-17) mg/dL Creatinine 0.81 (0.52-1.04) mg/dL Estimated GFR > 60.0 ML/MIN Glucose 110 H (74-106) mg/dL Calcium 9.1 (8.4-10.2) mg/dL Magnesium (1.6-2.3) mg/dL Total Bilirubin (0.2-1.3) mg/dL AST (14-36) U/L ALT (0-35) U/L Alkaline Phosphatase (38-126) U/L Troponin I (0.000-0.034) ng/mL NT-Pro-B Natriuret Pep (0-1800) pg/mL Serum Total Protein (6.3-8.2) g/dL Albumin (3.5-5.0) g/dL Prealbumin 24.39 (17.6-36.0) mg/dL Urine Color (YELLOW) Urine Appearance (CLEAR) Urine pH (5-6) Ur Specific [place] (1.005-1.025) Urine Protein (Negative) Urine Ketones (NEGATIVE) Urine Blood (0-5) Oleg/ul Urine Nitrite (NEGATIVE) Urine Bilirubin (NEGATIVE) Urine Urobilinogen (0-1) mg/dL Ur Leukocyte Esterase (NEGATIVE) Urine WBC (Auto) (0-5) /HPF Urine RBC (Auto) (0-2) /HPF U Hyaline Cast (Auto) (0-2) /LPF U Epithel Cells (Auto) (FEW) /HPF Urine Bacteria (Auto) (NEGATIVE) /HPF Urine Mucus (Auto) (NEGATIVE) /HPF Urine Culture Reflexed (NO) Urine Glucose (NEGATIVE) mg/dL - Other Procedures and Tests Respiratory Therapy 08/16/20 12:41 EKG REPEAT IN AM Assessment/Plan (1) Elevated troponin Current Visit: Yes Status: Acute Assessment & Plan: will follow troponin Code(s): R77.8 - OTHER SPECIFIED ABNORMALITIES OF PLASMA PROTEINS (2) Atrial fibrillation with RVR Current Visit: Yes Status: Acute Assessment & Plan: patient has converted back. on metoprolol, PO cardizem Code(s): I48.91 - UNSPECIFIED ATRIAL FIBRILLATION (3) Chronic left hip pain Current Visit: Yes Status: Acute Code(s): M25.552 - PAIN IN LEFT HIP; G89.29 - OTHER CHRONIC PAIN (4) Lumbar back pain with radiculopathy affecting left lower extremity Current Visit: No Status: Acute Code(s): M54.17 - RADICULOPATHY, LUMBOSACRAL REGION
[2020-08-16] MEDS: NORCO 7.5/325 MG TAB PO PRN (17:59)
[2020-08-16] MEDS: Calcium 500MG W/Vit D Tablet PO SCH (20:45)
[2020-08-16] MEDS ORDERED: NON-FORMULARY ITEM (Melatonin/Pyridoxine Hcl (B6) [Melatonin 3 Mg Tablet] 1 EACH) PO SCH (22:00)
[2020-08-16] MEDS ORDERED: NON-FORMULARY ITEM (Calcium Carbonate/Vitamin D3 [Calcium 600-Vit D3 200 Tablet] 1 EACH) PO SCH (22:00)
[2020-08-17] MEDS: NORCO 7.5/325 MG TAB PO PRN ×3 (00:29→18:56)
[2020-08-17] MEDS: MORPHINE SULFATE 2 MG INJ IV PRN ×3 (00:29→12:22)
[2020-08-17] MEDS: Sodium Chloride 0.9% 1000 ML 1,000 ML IV SCH ×2 (00:33→10:29)
[2020-08-17 05:59] LABS: Absolute Neutrophil Ct (ANC) 2.67 (1.4-6.9); BASOPHIL % 0.4 % (0.0-0.4); Basophil (Absolute #) 0.02 (0-0.4); Eosinophil % 0.9 % (0.00-5.0); Eosinophil (Absolute #) 0.04 (0-0.5); Hematocrit 33.7 % (35-47); Hemoglobin 10.6 gm/dl (12.0-16.0); Lymphocyte (Absolute #) 1.43 (1.0-4.6); Lymphocytes % 31.4 % (24.0-44.0); Mean Cell Volume 97.1 fl (78-100); Mean Corpuscular Hemoglobin 30.5 pg (26-32); Mean Corpuscular Hgb Concent. 31.5 g/dl (32-36); Mean Platelet Volume 10.8 fl (7.5-11.0); Monocytes % 8.8 % (0.0-12.0); Neutrophil % 58.5 % (36.0-66.0); Platelet Count 151 K/mm3 (150-450); Red Blood Count 3.47 M/mm3 (4.1-5.4); Red Cell Distribution Width 13.7 % (11.5-14.0); White Blood Count 4.6 K/mm3 (4.0-10.5)
[2020-08-17 06:07] LABS: ALBUMIN 3.2 g/dL (3.5-5.0); ALKALINE PHOSPHATASE 53 U/L (38-126); ANION GAP 6.7 MEQ/L (5-15); BLOOD UREA NITROGEN 18 mg/dL (7-17); CHLORIDE 106 mmol/L (98-107); Calcium 8.5 mg/dL (8.4-10.2); Carbon Dioxide 26 mmol/L (22-30); Creatinine 1 0.79 mg/dL (0.52-1.04); EST GLOMERULAR FILTRATION RATE > 60.0 ML/MIN; Glucose 99 mg/dL (74-106); SGOT/AST 28 U/L (14-36); SGPT/ALT 9 U/L (0-35); SODIUM 134 mmol/L (137-145); Total Protein 5.7 g/dL (6.3-8.2)
[2020-08-17] MEDS ORDERED: [UNRECOGNIZED DRUG - OTHER] PO SCH (10:00)
[2020-08-17] MEDS ORDERED: LUTEIN PO SCH (10:00)
[2020-08-17] MEDS ORDERED: VIT C PO SCH (10:00)
[2020-08-17] MEDS ORDERED: [UNRECOGNIZED DRUG - OTHER] PO SCH (10:00)
[2020-08-17] MEDS ORDERED: MULTIVIT MIN PO SCH (10:00)
[2020-08-17] MEDS ORDERED: COPPER PO SCH (10:00)
[2020-08-17] MEDS ORDERED: VIT E PO SCH (10:00)
[2020-08-17] MEDS ORDERED: VIT A PO SCH (10:00)
[2020-08-17] MEDS ORDERED: ZEAXANT PO SCH (10:00)
[2020-08-17] MEDS ORDERED: NON-FORMULARY ITEM (Esomeprazole Magnesium [Nexium] 40 MG) PO SCH (10:00)
[2020-08-17] MEDS ORDERED: ZINC PO SCH (10:00)
[2020-08-17] MEDS ORDERED: Cyclobenzaprine 10 MG PO ONE (10:06)
[2020-08-17] MEDS: Ocuvite Tablet PO SCH (10:36)
[2020-08-17] MEDS: Calcium 500MG W/Vit D Tablet PO SCH ×2 (10:36→21:20)
[2020-08-17] MEDS: PLAVIX 75 MG Tablet PO SCH (10:36)
[2020-08-17] MEDS: NEURONTIN 300 MG PO SCH ×3 (10:36→21:20)
[2020-08-17] MEDS: Miralax Powder 17GM PACKET PO SCH (10:36)
[2020-08-17] MEDS: ZOLOFT 50 MG TABLET PO SCH (10:36)
[2020-08-17] MEDS: Protonix 40MG Tablet PO SCH (10:36)
[2020-08-17] MEDS: Toprol Xl 50 MG PO SCH (10:53)
[2020-08-17] MEDS: Cardizem CD 120 MG PO SCH (10:53)
[2020-08-17] MEDS: Lidoderm Patch 5% TOP SCH (12:04)
--- NOTE | 2020-08-17 16:16 | PCM.NOTE ---
Date and Time: 08/17/20 161 Subjective Assessment: 89 yr old female seen and examined this am. Patient reports her main complaint is left hip/back pain. She reports this started on . She has been to the ER twice for the hip pain and was found on the second visit to be in afib with RVR. She denies any chest pain this am. She denies any hx of arrhythmia. She reports that she has had 2 back surgeries in the past. She reports that the medications she is on for the back and left hip pain are not working. She denies any issues with bp in the past. - Review of Systems Constitutional: No Symptoms Eyes: Other (blind left eye) Ears, Nose, & Throat: No Symptoms Respiratory: No Symptoms Cardiac: No Symptoms Abdominal/Gastrointestinal: No Abdominal Pain, No Nausea, No Vomiting, No Diarrhea, No Constipation Genitourinary Symptoms: No Symptoms Musculoskeletal: Back Pain, Myalgias Skin: No Symptoms Neurological: No Symptoms Psychological: No Symptoms Objective Exam General Appearance: mild distress Neurologic Exam: alert, oriented x 3, normal mood/affect, motor weakness (2/5 strength left leg) Skin Exam: normal color, warm, dry, No rash Ears, Nose, Throat Exam: moist mucous membranes Respiratory Exam: normal breath sounds, lungs clear, No respiratory distress, No diminished breath sounds, No crackles/rales, No wheezing Cardiovascular Exam: irregular, No murmur, No friction rub, No gallop Gastrointestinal/Abdomen Exam: soft, normal bowel sounds, No tenderness, No dis tention, No mass, No guarding, No rebound Extremity Exam: tenderness (Tenderness left hip with palpation unable to do a external rotation left hip) Back Exam: No vertebral tenderness OBJECTIVE DATA Vital Signs: Vital Signs - 24 hr Temp Pulse Resp BP Pulse Ox 08/17/20 12:00 98.1 F 59 L 16 124/59 98 08/17/20 07:39 98.7 F 64 20 90/44 95 08/17/20 04:05 97.5 F 58 L 16 95/41 95 08/17/20 00:00 98.4 F 64 28 H 108/50 94 L 08/16/20 19:54 98.4 F 65 12 91/47 96 08/16/20 19:23 98.4 F 65 12 91/47 96 Pain Assessment - Last Documented Pain Intensity 10 Pain Scale Used 0-10 Pain Scale Intake and Output: Intake & Output 08/15/20 08/16/20 08/17/20 08/18/20 11:59 11:59 11:59 11:59 Intake Total 2182 120 Output Total 0 Balance 2182 120 Weight 57.742 kg 58.1 kg Lab Results: Lab Results-Last 24 Hours 08/16/20 08/16/20 08/16/20 Range/Units 16:40 19:34 23:00 WBC (4.0-10.5) K/mm3 RBC (4.1-5.4) M/mm3 Hgb (12.0-16.0) gm/dl Hct (35-47) % MCV (78-100) fl MCH (26-32) pg MCHC (32-36) g/dl RDW (11.5-14.0) % Plt Count (150-450) K/mm3 MPV (7.5-11.0) fl Gran % (36.0-66.0) % Eos # (Auto) (0-0.5) Absolute Lymphs (auto) (1.0-4.6) Absolute Monos (auto) (0.0-1.3) Lymphocytes % (24.0-44.0) % Monocytes % (0.0-12.0) % Eosinophils % (0.00-5.0) % Basophils % (0.0-0.4) % Absolute Granulocytes (1.4-6.9) Basophils # (0-0.4) Sodium (137-145) mmol/L Potassium (3.5-5.1) mmol/L Chloride (98-107) mmol/L Carbon Dioxide (22-30) mmol/L Anion Gap (5-15) MEQ/L BUN (7-17) mg/dL Creatinine (0.52-1.04) mg/dL Estimated GFR ML/MIN Glucose (74-106) mg/dL Calcium (8.4-10.2) mg/dL Total Bilirubin (0.2-1.3) mg/dL AST (14-36) U/L ALT (0-35) U/L Alkaline Phosphatase (38-126) U/L Troponin I 0.239 H* 0.302 H* 0.292 H* (0.000-0.034) ng/mL Serum Total Protein (6.3-8.2) g/dL Albumin (3.5-5.0) g/dL 08/17/20 08/17/20 08/17/20 Range/Units 05:35 05:35 05:35 WBC 4.6 (4.0-10.5) K/mm3 RBC 3.47 L (4.1-5.4) M/mm3 Hgb 10.6 L (12.0-16.0) gm/dl Hct 33.7 L (35-47) % MCV 97.1 (78-100) fl MCH 30.5 (26-32) pg MCHC 31.5 L (32-36) g/dl RDW 13.7 (11.5-14.0) % Plt Count 151 (150-450) K/mm3 MPV 10.8 (7.5-11.0) fl Gran % 58.5 (36.0-66.0) % Eos # (Auto) 0.04 (0-0.5) Absolute Lymphs (auto) 1.43 (1.0-4.6) Absolute Monos (auto) 0.40 (0.0-1.3) Lymphocytes % 31.4 (24.0-44.0) % Monocytes % 8.8 (0.0-12.0) % Eosinophils % 0.9 (0.00-5.0) % Basophils % 0.4 (0.0-0.4) % Absolute Granulocytes 2.67 (1.4-6.9) Basophils # 0.02 (0-0.4) Sodium 134 L (137-145) mmol/L Potassium 4.0 D (3.5-5.1) mmol/L Chloride 106 (98-107) mmol/L Carbon Dioxide 26 (22-30) mmol/L Anion Gap 6.7 (5-15) MEQ/L BUN 18 H (7-17) mg/dL Creatinine 0.79 (0.52-1.04) mg/dL Estimated GFR > 60.0 ML/MIN Glucose 99 (74-106) mg/dL Calcium 8.5 (8.4-10.2) mg/dL Total Bilirubin 0.50 (0.2-1.3) mg/dL AST 28 (14-36) U/L ALT 9 (0-35) U/L Alkaline Phosphatase 53 (38-126) U/L Troponin I 0.239 H* (0.000-0.034) ng/mL Serum Total Protein 5.7 L (6.3-8.2) g/dL Albumin 3.2 L (3.5-5.0) g/dL Assessment/Plan (1) Atrial fibrillation with RVR Current Visit: Yes Status: Acute Assessment & Plan: Resolved. Patient had been transitioned to po meds however her bps have been 90/40 so her bp meds are on hold. Will have to resume if bps increase or if patient has pulse that is not well controlled. Did not feel patient could go home with bps as low as they were. Code(s): I48.91 - UNSPECIFIED ATRIAL FIBRILLATION (2) Chronic left hip pain Current Visit: Yes Status: Acute Assessment & Plan: CT did not show cause for pain. Added lidocaine patch and muscle relaxer as well. Will continue to monitor her pain. Code(s): M25.552 - PAIN IN LEFT HIP; G89.29 - OTHER CHRONIC PAIN (3) Elevated troponin Current Visit: Yes Status: Acute Assessment & Plan: likely related to afib with RVR patient had no chest pain at the time. Code(s): R77.8 - OTHER SPECIFIED ABNORMALITIES OF PLASMA PROTEINS (4) Hip pain Current Visit: No Status: Acute Code(s): M25.559 - PAIN IN UNSPECIFIED HIP (5) Lumbar back pain with radiculopathy affecting left lower extremity Current Visit: No Status: Acute Assessment & Plan: CT did not show any acute changes. Will consider MRI. Patient has additional medications for the back pain. She will likely need a neurospine surgery consult Code(s): M54.17 - RADICULOPATHY, LUMBOSACRAL REGION (6) Sciatica Current Visit: No Status: Acute Code(s): M54.30 - SCIATICA, UNSPECIFIED SIDE
[2020-08-17] MEDS ORDERED: Cyclobenzaprine 10 MG PO PRN (20:55)
[2020-08-17] MEDS: PATIENT OWN MEDICATION PO SCH (21:21)
[2020-08-18] MEDS: MORPHINE SULFATE 2 MG INJ IV PRN ×2 (02:23→06:20)
[2020-08-18] MEDS: Sodium Chloride 0.9% 1000 ML 1,000 ML IV SCH (06:43)
[2020-08-18] MEDS ORDERED: Toprol Xl 50 MG PO PRN (09:37)
[2020-08-18] MEDS: Lidoderm Patch 5% TOP SCH (11:18)
[2020-08-18] MEDS: Miralax Powder 17GM PACKET PO SCH (11:21)
[2020-08-18] MEDS: NEURONTIN 300 MG PO SCH ×3 (11:21→21:22)
[2020-08-18] MEDS: ZOLOFT 50 MG TABLET PO SCH (11:21)
[2020-08-18] MEDS: Calcium 500MG W/Vit D Tablet PO SCH ×2 (11:21→21:22)
[2020-08-18] MEDS: PLAVIX 75 MG Tablet PO SCH (11:21)
[2020-08-18] MEDS: Protonix 40MG Tablet PO SCH (11:21)
[2020-08-18] MEDS: Ocuvite Tablet PO SCH (11:28)
[2020-08-18] MEDS: MORPHINE SULFATE 4 MG INJ IV PRN ×2 (11:28→18:57)
--- NOTE | 2020-08-18 19:07 | PCM.NOTE ---
Date and Time: 08/18/201900 Subjective Assessment: 89 yr old female seen and examined this am. Patient reports that her main complain is her left sided pain that starts in her low back and radiates to her left leg. She reports that she sees Dr Campuzano for a leaky valve but has never been diagnosed with afib before. Patient's son is present this am and does not feel that patient's pain is being addressed and that if she was discharged today he would likely have to bring her back due to the pain. Patient report that she has been requiring a walker to assist her to the bathroom. Denies chest pain or shortness of breath. - Review of Systems Constitutional: No Symptoms Eyes: Other (blind left eye) Ears, Nose, & Throat: No Symptoms Respiratory: No Cough, No Short Of Breath, No Wheezing Cardiac: No Chest Pain, No Edema Abdominal/Gastrointestinal: No Abdominal Pain, No Nausea, No Vomiting, No Diarrhea, No Constipation Genitourinary Symptoms: No Symptoms Musculoskeletal: Back Pain, Myalgias Skin: No Symptoms Neurological: No Headache Psychological: No Symptoms Objective Exam General Appearance: mild distress, other Neurologic Exam: alert, oriented x 3, cooperative, normal mood/affect, abnormal gait Skin Exam: normal color, warm, dry, No rash Eye Exam: other (blind in left eye) Ears, Nose, Throat Exam: moist mucous membranes Neck Exam: JVD Respiratory Exam: normal breath sounds, lungs clear, No respiratory distress, No diminished breath sounds, No crackles/rales, No wheezing Cardiovascular Exam: irregular, No murmur, No friction rub, No gallop, No edema Gastrointestinal/Abdomen Exam: soft, normal bowel sounds, No tenderness, No distention, No mass, No guarding, No rebound Extremity Exam: tenderness (Patient is tender along left lateral pelvis. Patient unable to raise left leg. She appears to toe touch weight bear when ambulating with walker.), No pedal edema, No swelling Back Exam: other OBJECTIVE DATA Vital Signs: Vital Signs - 24 hr Temp Pulse Resp BP Pulse Ox 08/18/20 16:00 71 16 157/72 96 08/18/20 11:59 98.3 F 78 18 160/87 95 08/18/20 07:29 98.3 F 69 19 129/59 97 08/18/20 03:45 98.3 F 70 17 129/59 96 08/17/20 23:47 98.1 F 67 21 118/71 94 L 08/17/20 19:41 98.2 F 71 19 121/49 95 Pain Assessment - Last Documented Pain Intensity 8 Pain Scale Used 0-10 Pain Scale Intake and Output: Intake & Output 08/16/20 08/17/20 08/18/20 08/19/20 11:59 11:59 11:59 11:59 Intake Total 2182 2163 240 Output Total 0 300 300 Balance 2182 1863 -60 Weight 57.742 kg 58.1 kg 57.3 kg Assessment/Plan (1) Atrial fibrillation with RVR Current Visit: Yes Status: Acute Assessment & Plan: This was corrected quickly on IV drip medication. Patient's oral meds have had to be held due to blood pressures of 90/40 and pulse in the 70s. She has remained in an irregular rhythm and no chest pain. Will continue to monitor on tele. BP meds will need to be resumed if she starts having elevated bps or her pulse is not controlled. Code(s): I48.91 - UNSPECIFIED ATRIAL FIBRILLATION (2) Chronic left hip pain Current Visit: Yes Status: Acute Assessment & Plan: Patient continues to be in the hospital due to chronic pain. She was seen in ER and sent home and was brought back to ER for another issue but has still been complaining of the left sided back pain. She had CT imaging which did not show any acute injury. MRI is ordered for in the am as she continues to have pain even with pain medication muscle relaxer lidocaine patches and neuropathy medication. She does have left sided deficit with strength 2/5 and has an abnormal gait where she appears to toe touch weight bear on left side. when using a walker. Code(s): M25.552 - PAIN IN LEFT HIP; G89.29 - OTHER CHRONIC PAIN (3) Lumbar back pain with radiculopathy affecting left lower extremity Current Visit: No Status: Acute Assessment & Plan: Not responding to medication. Patient will likely need to follow up with neurospine surgery or pain management as her medications are no longer managing her pain. Code(s): M54.17 - RADICULOPATHY, LUMBOSACRAL REGION (4) Sciatica Current Visit: No Status: Acute Code(s): M54.30 - SCIATICA, UNSPECIFIED SIDE
[2020-08-18] MEDS: PATIENT OWN MEDICATION PO SCH (21:23)
[2020-08-19] MEDS: MORPHINE SULFATE 4 MG INJ IV PRN ×3 (01:06→14:00)
[2020-08-19] MEDS: Sodium Chloride 0.9% 1000 ML 1,000 ML IV SCH ×4 (02:29→07:52)
[2020-08-19] MEDS ORDERED: CARDIZEM DRIP 100 MG/100 ML D5W 100 ML IV PRN (05:51)
[2020-08-19] MEDS ORDERED: Cardizem IV 50 MG/10 ML IV ONE ×2 (06:02)
[2020-08-19] MEDS: Cyclobenzaprine 10 MG PO PRN ×2 (08:03→14:01)
[2020-08-19 08:25] LABS: Absolute Neutrophil Ct (ANC) 2.74 (1.4-6.9); BASOPHIL % 0.2 % (0.0-0.4); Basophil (Absolute #) 0.01 (0-0.4); Eosinophil % 1.2 % (0.00-5.0); Eosinophil (Absolute #) 0.06 (0-0.5); Hematocrit 36.5 % (35-47); Hemoglobin 11.7 gm/dl (12.0-16.0); Lymphocyte (Absolute #) 1.63 (1.0-4.6); Lymphocytes % 33.8 % (24.0-44.0); Mean Cell Volume 95.3 fl (78-100); Mean Corpuscular Hemoglobin 30.5 pg (26-32); Mean Corpuscular Hgb Concent. 32.1 g/dl (32-36); Mean Platelet Volume 11.2 fl (7.5-11.0); Monocyte (Absolute #) 0.38 (0.0-1.3); Monocytes % 7.9 % (0.0-12.0); Neutrophil % 56.9 % (36.0-66.0); Platelet Count 132 K/mm3 (150-450); Red Blood Count 3.83 M/mm3 (4.1-5.4); Red Cell Distribution Width 13.5 % (11.5-14.0); White Blood Count 4.8 K/mm3 (4.0-10.5)
[2020-08-19] MEDS: Lidoderm Patch 5% TOP SCH (09:06)
[2020-08-19] MEDS: Protonix 40MG Tablet PO SCH (09:06)
[2020-08-19] MEDS: Calcium 500MG W/Vit D Tablet PO SCH ×2 (09:06→21:10)
[2020-08-19] MEDS: Ocuvite Tablet PO SCH (09:06)
[2020-08-19] MEDS: PLAVIX 75 MG Tablet PO SCH (09:06)
[2020-08-19] MEDS: NEURONTIN 300 MG PO SCH ×3 (09:06→21:10)
[2020-08-19] MEDS: Miralax Powder 17GM PACKET PO SCH (09:06)
[2020-08-19] MEDS: ZOLOFT 50 MG TABLET PO SCH (09:06)
[2020-08-19 09:34] LABS: ALBUMIN 3.4 g/dL (3.5-5.0); ALKALINE PHOSPHATASE 63 U/L (38-126); ANION GAP 6.5 MEQ/L (5-15); BLOOD UREA NITROGEN 14 mg/dL (7-17); CHLORIDE 107 mmol/L (98-107); Calcium 8.8 mg/dL (8.4-10.2); Carbon Dioxide 27 mmol/L (22-30); Creatinine 1 0.68 mg/dL (0.52-1.04); EST GLOMERULAR FILTRATION RATE > 60.0 ML/MIN; Glucose 96 mg/dL (74-106); Potassium 3.9 mmol/L (3.5-5.1); SGOT/AST 27 U/L (14-36); SGPT/ALT 8 U/L (0-35); SODIUM 137 mmol/L (137-145); Total Protein 5.8 g/dL (6.3-8.2)
--- NOTE | 2020-08-19 10:13 | PCM.NOTE ---
Date and Time: 08/19/20 1012 Subjective Assessment: still c/o hip pain - Review of Systems Constitutional: No Fever, No Chills Eyes: No Symptoms Ears, Nose, & Throat: No Symptoms Respiratory: No Cough, No Short Of Breath Cardiac: No Chest Pain, No Edema, No Syncope Abdominal/Gastrointestinal: No Abdominal Pain, No Nausea, No Vomiting, No Diarrhea Genitourinary Symptoms: No Dysuria Musculoskeletal: Joint Pain, No Back Pain, No Neck Pain Skin: No Rash Neurological: No Dizziness, No Focal Weakness, No Sensory Changes Psychological: No Symptoms Endocrine: No Symptoms Hematologic/Lymphatic: No Symptoms Immunological/Allergic: No Symptoms Objective Exam General Appearance: no apparent distress, alert Neurologic Exam: alert, oriented x 3, cooperative, normal mood/affect, nml cerebellar function, sensation nml, No motor deficits Skin Exam: normal color, warm, dry Eye Exam: PERRL, EOMI, eyes nml inspection Ears, Nose, Throat Exam: normal ENT inspection, pharynx normal, moist mucous membranes Neck Exam: normal inspection, non-tender, supple, full range of motion Respiratory Exam: normal breath sounds, lungs clear, No respiratory distress Cardiovascular Exam: regular rate/rhythm, normal heart sounds Gastrointestinal/Abdomen Exam: soft, No tenderness, No mass Extremity Exam: normal inspection, normal range of motion Back Exam: normal inspection, normal range of motion, No CVA tenderness, No vertebral tenderness Pelvic Exam: deferred Rectal Exam: deferred OBJECTIVE DATA Vital Signs: Vital Signs - 24 hr Temp Pulse Resp BP BP Pulse Ox 08/19/20 09:26 77 18 112/54 08/19/20 08:26 72 20 149/76 08/19/20 08:00 83 18 149/78 97 08/19/20 07:24 71 18 129/70 08/19/20 07:00 79 18 129/59 97 08/19/20 04:09 97.9 F 73 18 133/51 96 08/18/20 23:53 98.2 F 81 17 148/85 96 08/18/20 20:25 98.5 F 75 23 154/70 97 08/18/20 20:00 98.5 F 75 23 154/70 97 08/18/20 16:00 71 16 157/72 96 08/18/20 11:59 98.3 F 78 18 160/87 95 Pain Assessment - Last Documented Pain Intensity 4 Pain Scale Used 0-10 Pain Scale Intake and Output: Intake & Output 08/16/20 08/17/20 08/18/20 08/19/20 11:59 11:59 11:59 11:59 Intake Total 2182 2163 1552 Output Total 0 300 300 Balance 2182 1863 1252 Weight 57.742 kg 58.1 kg 57.3 kg 58 kg Lab Results: Lab Results-Last 24 Hours 08/19/20 08/19/20 08/19/20 Range/Units 06:14 06:14 06:14 WBC 4.8 (4.0-10.5) K/mm3 RBC 3.83 L (4.1-5.4) M/mm3 Hgb 11.7 L (12.0-16.0) gm/dl Hct 36.5 (35-47) % MCV 95.3 (78-100) fl MCH 30.5 (26-32) pg MCHC 32.1 (32-36) g/dl RDW 13.5 (11.5-14.0) % Plt Count 132 L (150-450) K/mm3 MPV 11.2 H (7.5-11.0) fl Gran % 56.9 (36.0-66.0) % Eos # (Auto) 0.06 (0-0.5) Absolute Lymphs (auto) 1.63 (1.0-4.6) Absolute Monos (auto) 0.38 (0.0-1.3) Lymphocytes % 33.8 (24.0-44.0) % Monocytes % 7.9 (0.0-12.0) % Eosinophils % 1.2 (0.00-5.0) % Basophils % 0.2 (0.0-0.4) % Absolute Granulocytes 2.74 (1.4-6.9) Basophils # 0.01 (0-0.4) Sodium 137 (137-145) mmol/L Potassium 3.9 (3.5-5.1) mmol/L Chloride 107 (98-107) mmol/L Carbon Dioxide 27 (22-30) mmol/L Anion Gap 6.5 (5-15) MEQ/L BUN 14 (7-17) mg/dL Creatinine 0.68 (0.52-1.04) mg/dL Estimated GFR > 60.0 ML/MIN Glucose 96 (74-106) mg/dL Calcium 8.8 (8.4-10.2) mg/dL Total Bilirubin 0.40 (0.2-1.3) mg/dL AST 27 (14-36) U/L ALT 8 (0-35) U/L Alkaline Phosphatase 63 (38-126) U/L Troponin I 0.074 H* (0.000-0.034) ng/mL Serum Total Protein 5.8 L (6.3-8.2) g/dL Albumin 3.4 L (3.5-5.0) g/dL Radiology Exams: Radiology Procedures Category Date Time Status ECHO W/2D AND DOPPLER [US] Routine Exams 08/19/20 10:00 Ordered MRI L-SPINE W & W/O CONTRAST [MRI] Routine Exams 08/19/20 00:01 Ordered MRI PELVIS W & W/O CONTRAST [MRI] Routine Exams 08/19/20 00:01 Ordered Assessment/Plan (1) Elevated troponin Current Visit: Yes Status: Acute Code(s): R77.8 - OTHER SPECIFIED ABNORMALITIES OF PLASMA PROTEINS (2) Atrial fibrillation with RVR Current Visit: Yes Status: Acute Code(s): I48.91 - UNSPECIFIED ATRIAL FIBRILLATION (3) Chronic left hip pain Current Visit: Yes Status: Acute Code(s): M25.552 - PAIN IN LEFT HIP; G89.29 - OTHER CHRONIC PAIN (4) Lumbar back pain with radiculopathy affecting left lower extremity Current Visit: No Status: Acute Code(s): M54.17 - RADICULOPATHY, LUMBOSACRAL REGION
[2020-08-19] MEDS: Cardizem CD 180 MG PO SCH (11:36)
--- NOTE | 2020-08-19 17:10 | XRAY ---
Indication: Left pelvic pain. No known injury. Axial and coronal MRI hips performed using T1, T2, and STIR sequences. T2 fat-suppressed images obtained through the left hip. Comparison: None Hips are bilaterally symmetric without effusion. No acute fracture, suspicious bony lesions, bony remodeling, or evidence for avascular necrosis. There is minimal bilateral and left gluteal subcutaneous soft tissue edema signal. No suspicious solid/cystic soft tissue mass or abnormal fluid collection. Visualized pelvic contents are unremarkable. Impression: 1. Minimal subcutaneous soft tissue edema signal as detailed. 2. Remaining MRI hips negative.
--- NOTE | 2020-08-19 17:27 | XRAY ---
Indication: Low back pain radiating left pelvis. No known injury. Sagittal and axial MRI lumbar spine performed without contrast using T1 and T2-weighted sequences. Recent CT lumbar spine August 15, 2020 document 5 lumbar vertebral segments. Sagittal MRI images demonstrates normal lumbar alignment. There is L1-S1 degenerative disc desiccation signal with disc space narrowing. L4-S1 opposing endplate degenerative discogenic signal changes, Modic type III. 7 mm L5 vertebral hemangioma. No acute fracture, suspicious bony lesions, or abnormal bone marrow signal. Conus medullaris terminates at the thoracolumbar junction. Sagittal images through the T12-L3 levels demonstrates minimal/mild L1-L3 broad-based disc bulge minimally effacing the thecal sac and producing bilateral foraminal narrowing. No discrimination or canal stenosis. Axial images at the L3-L4 level demonstrate mild annular disc bulge minimally effacing the thecal sac and producing bilateral foraminal narrowing. No disc herniation or canal stenosis. Mild bilateral degenerative facet arthropathy. At the L4-L5 level, there is mild/moderate annular disc bulge greater towards the left slightly effacing the thecal sac and producing left foraminal stenosis and right foraminal narrowing. Slight impingement of the exiting left L4 nerve root. There has been right pinhole laminectomy. No central disc herniation or spinal canal stenosis. Mild bilateral degenerative facet arthropathy. At the L5-S1 level, there is mild/moderate annular disc bulge minimally effacing the thecal sac and producing bilateral foraminal stenosis. Subsequent impingement of the exiting L5 nerve roots right greater than left. No central disc herniation or spinal canal stenosis. Mild bilateral degenerative facet arthropathy. Impression: 1. Multilevel degenerative disc disease detailed level by level. Greatest extent L4-S1 levels. 2. Negative disc herniation or spinal canal stenosis. 3. Incidental tiny L3 vertebral hemangioma.
[2020-08-19] MEDS: PATIENT OWN MEDICATION PO SCH (21:11)
[2020-08-19] MEDS: Sodium Chloride 0.9% 10 ML FLUSH Syringe IV SCH (21:13)
[2020-08-20] MEDS: Sodium Chloride 0.9% 10 ML FLUSH Syringe IV SCH ×3 (05:43→22:00)
[2020-08-20] MEDS: MORPHINE SULFATE 4 MG INJ IV PRN (05:59)
[2020-08-20] MEDS: Lidoderm Patch 5% TOP SCH (08:45)
[2020-08-20] MEDS: Miralax Powder 17GM PACKET PO SCH (08:45)
[2020-08-20] MEDS: ZOLOFT 50 MG TABLET PO SCH (08:46)
[2020-08-20] MEDS: PLAVIX 75 MG Tablet PO SCH (08:46)
[2020-08-20] MEDS: Protonix 40MG Tablet PO SCH (08:46)
[2020-08-20] MEDS: NEURONTIN 300 MG PO SCH ×3 (08:46→22:05)
[2020-08-20] MEDS: Cardizem CD 180 MG PO SCH (08:46)
[2020-08-20] MEDS: Calcium 500MG W/Vit D Tablet PO SCH ×2 (08:46→22:05)
[2020-08-20] MEDS: Cyclobenzaprine 10 MG PO PRN ×2 (08:46→14:18)
[2020-08-20] MEDS: Ocuvite Tablet PO SCH (08:46)
[2020-08-20] MEDS ORDERED: NORCO 7.5/325 MG TAB PO PRN (09:29)
[2020-08-20] MEDS: NORCO 7.5/325 MG TAB PO PRN ×3 (09:41→22:11)
[2020-08-20] MEDS ORDERED: Toprol Xl 50 MG PO SCH (10:00)
[2020-08-20] MEDS: PATIENT OWN MEDICATION PO SCH (22:05)
--- NOTE | 2020-08-20 22:22 | PCM.NOTE ---
Date and Time: 08/20/202220 Subjective Assessment: c/o left hip pain. no chest pain - Review of Systems Constitutional: No Fever, No Chills Eyes: No Symptoms Ears, Nose, & Throat: No Symptoms Respiratory: No Cough, No Short Of Breath Cardiac: No Chest Pain, No Edema, No Syncope Abdominal/Gastrointestinal: No Abdominal Pain, No Nausea, No Vomiting, No Diarrhea Genitourinary Symptoms: No Dysuria Musculoskeletal: No Back Pain, No Neck Pain Skin: No Rash Neurological: No Dizziness, No Focal Weakness, No Sensory Changes Psychological: No Symptoms Endocrine: No Symptoms Hematologic/Lymphatic: No Symptoms Immunological/Allergic: No Symptoms Objective Exam General Appearance: no apparent distress, alert Neurologic Exam: alert, oriented x 3, cooperative, normal mood/affect, nml cerebellar function, sensation nml, No motor deficits Skin Exam: normal color, warm, dry Eye Exam: PERRL, EOMI, eyes nml inspection Ears, Nose, Throat Exam: normal ENT inspection, pharynx normal, moist mucous membranes Neck Exam: normal inspection, non-tender, supple, full range of motion Respiratory Exam: normal breath sounds, lungs clear, No respiratory distress Cardiovascular Exam: regular rate/rhythm, normal heart sounds Gastrointestinal/Abdomen Exam: soft, No tenderness, No mass Extremity Exam: normal inspection, normal range of motion Back Exam: normal inspection, normal range of motion, No CVA tenderness, No vertebral tenderness Pelvic Exam: deferred Rectal Exam: deferred OBJECTIVE DATA Vital Signs: Vital Signs - 24 hr Temp Pulse Resp BP Pulse Ox 08/20/20 19:53 97.8 F 68 16 130/73 96 08/20/20 16:00 98.1 F 69 18 127/56 92 L 08/20/20 12:00 97.7 F 61 18 119/58 90 L 08/20/20 07:51 98.2 F 89 16 132/62 94 L 08/20/20 04:00 98.1 F 69 16 130/73 94 L 08/20/20 00:00 98.3 F 67 15 119/62 94 L Pain Assessment - Last Documented Pain Intensity 7 Pain Scale Used 0-10 Pain Scale Intake and Output: Intake & Output 08/18/20 08/19/20 08/20/20 08/21/20 11:59 11:59 11:59 11:59 Intake Total 2163 1552 60 120 Output Total 300 300 Balance 1863 1252 60 120 Weight 57.3 kg 58 kg 59.4 kg Radiology Exams: Radiology Procedures Category Date Time Status ECHO W/2D AND DOPPLER [US] Routine Exams 08/19/20 10:00 Taken MRI L-SPINE WITHOUT CONTRAST [MRI] Routine Exams 08/19/20 16:47 Completed MRI PELVIS WITHOUT CONTRAST [MRI] Routine Exams 08/19/20 13:02 Completed Multi-Disciplinary Progress Notes: Multi-Disciplinary Progress Notes 08/20/20 16:06 Physical Therapy Note by Annita Senior PT. REPORTS FEELING SLIGHTLY BETTER. STILL C/ON INCREASED L LE PN ESPECIALLY IN LL W/ WB. RATES L LBP AND L LE PN AT 7/10 UPON P.T. ARRIVAL TO ROOM. SUPINE TO SIT SBA W/ HOB ELEVATED. SIT TO STAND SBA. AMBULATED 120' W/ ROLLER WALKER AND SBA. NOTED DECREASED WB L LE AND SHORTENED R LE D/T L LE PN W WB. NO UNSTEADINESS NOTED BUT DID NOTE INCREASED L LE PN BY END OF WALK. PT. PERFORMED SEATED LE EX'S LAQS, AND MARCHES WELL SCAPULAR RETRACTIONS. NOTED L QUAD WEAKNESS AND PN W/ LAQS. T. DENIED NEED FOR CP. DOES FEEL DIURGESIC PATCH DECREASE PN. WILL CONT. PT 5X/WK TO MAXIMIZE FUNCTIONAL POTENTIAL TO D/C HOME. PLAN IS TO MOVE TO SWING BED TO CONT. REHAB SOON. ANNITA SENIOR, PT Initialized on 08/20/20 16:06 - END OF NOTE Assessment/Plan (1) Atrial fibrillation with RVR Current Visit: Yes Status: Acute Assessment & Plan: Chief Complaint Diagnosis AFIB WITH RVR, ELEVATED TROPONIN Allergies Allergy/AdvReac Type Severity Reaction Status Date / Time influenza virus vacc Allergy Intermediate Verified 08/16/20 12:57 trivalent, split [From Fluzone] erythromycin base Allergy Itching Verified 08/16/20 12:54 iodine Allergy Hives Verified 08/16/20 12:54 meloxicam Allergy Hives Verified 08/16/20 12:54 methotrexate Allergy Hives Verified 08/16/20 12:54 metoclopramide HCl Allergy Itching Verified 08/16/20 12:54 [From Reglan] primidone [From Mysoline] Allergy Hives Verified 08/16/20 12:54 methylprednisolone AdvReac Verified 08/16/20 12:54 [From ValenTx] Vital Signs (Last 24 hours) Temp Pulse Resp BP Pulse Ox 08/20/20 19:53 97.8 F 68 16 130/73 96 08/20/20 16:00 98.1 F 69 18 127/56 92 L 08/20/20 12:00 97.7 F 61 18 119/58 90 L 08/20/20 07:51 98.2 F 89 16 132/62 94 L 08/20/20 04:00 98.1 F 69 16 130/73 94 L 08/20/20 00:00 98.3 F 67 15 119/62 94 L Home Medications Medication Instructions Recorded Confirmed Last Taken Type Multivit-Min/FA/Lutein/Zeaxant 4 each PO DAILY 08/16/20 08/16/20 08/15/20 History [Icaps Mv Tablet] Current Medications Generic Name Dose Route Start Last Admin Trade Name Freq PRN Reason Stop Dose Admin Acetaminophen 650 mg 08/16/20 12:41 08/16/20 13:35 Tylenol 325 Mg PO 09/15/20 12:40 650 mg Q4H PRN PRN Administration PAIN AND/OR FEVER Hydrocodone Bitart/Acetaminophen 1 tab 08/20/20 09:30 08/20/20 22:11 Rapidan 7.5/325 Mg Tab PO 08/25/20 09:29 1 tab Q6H PRN PRN Administration PAIN Calcium Carbonate 1 tab 08/16/20 22:00 08/20/20 22:05 Calcium 500mg W/Vit D Tablet PO 09/15/20 21:59 1 tab BID MILTON Administration Clopidogrel Bisulfate 75 mg 08/16/20 16:00 08/20/20 08:46 Plavix 75 Mg Tablet PO 09/15/20 15:59 75 mg DAILY MILTON Administration Cyclobenzaprine HCl 10 mg 08/18/20 10:40 08/20/20 14:18 Cyclobenzaprine 10 Mg PO 09/17/20 10:39 10 mg TIDPRN PRN Administration MUSCLE SPASMS Diltiazem HCl 180 mg 08/19/20 12:00 08/20/20 08:46 Cardizem Cd 180 Mg PO 09/18/20 11:59 180 mg DAILY MILTON Administration Gabapentin 300 mg 08/16/20 15:00 08/20/20 22:05 Neurontin 300 Mg PO 09/15/20 14:59 300 mg TID MILTON Administration Lidocaine 1 patch 08/17/20 10:00 08/20/20 08:45 Lidoderm Patch 5% TOP 09/16/20 09:59 1 patch DAILY MILTON Administration Meclizine HCl 12.5 mg 08/16/20 15:11 Antivert 25 Mg PO 09/15/20 15:10 QID PRN PRN DIZZINESS Morphine Sulfate 4 mg 08/18/20 09:36 08/20/20 05:59 Morphine Sulfate 4 Mg Inj IV 08/23/20 09:35 4 mg Q6H PRN PRN Administration PAIN Multivitamins/Minerals 4 tab 08/17/20 10:00 08/20/20 08:46 Ocuvite Tablet PO 09/16/20 09:59 4 tab DAILY MILTON Administration Non-Formulary Medication 1 each 08/17/20 22:00 08/20/20 22:05 Remove Patch Reminder TOP 09/16/20 21:59 1 each HS MILTON Administration Ondansetron HCl 4 mg 08/16/20 12:41 Zofran 4 Mg/2 Ml Vial IV 09/15/20 12:40 Q6H PRN PRN NAUSEA/VOMITING Pantoprazole Sodium 40 mg 08/16/20 15:15 08/20/20 08:46 Protonix 40mg Tablet PO 09/15/20 15:14 40 mg DAILY MILTON Administration Patient Own Med ( 0 each 08/17/20 22:00 08/20/20 22:05 Melatonin) PO 09/16/20 21:59 1 each HS MILTON Administration Polyethylene Glycol 17 gm 08/16/20 15:00 08/20/20 08:45 Miralax Powder 17gm Packet PO 09/15/20 14:59 17 gm DAILY MILTON Administration Sertraline HCl 50 mg 08/16/20 15:15 08/20/20 08:46 Zoloft 50 Mg Tablet PO 09/15/20 15:14 50 mg DAILY MILTON Administration Sodium Chloride 10 ml 08/19/20 22:00 08/20/20 14:16 Sodium Chloride 0.9% 10 Ml Flush Syringe IV 09/18/20 21:59 10 ml Q8HT MILTON Administration Discontinued Medications Generic Name Dose Route Start Last Admin Trade Name Freq PRN Reason Stop Dose Admin Hydrocodone Bitart/Acetaminophen 1 tab 08/16/20 14:54 08/17/20 18:56 Rapidan 7.5/325 Mg Tab PO 08/21/20 14:53 1 tab Q6H PRN PRN Administration PAIN Hydrocodone Bitart/Acetaminophen 1 tab 08/20/20 09:29 Rapidan 7.5/325 Mg Tab PO 08/25/20 09:28 Q4H PRN PRN PAIN Cyclobenzaprine HCl 10 mg 08/17/20 10:06 08/17/20 11:41 Cyclobenzaprine 10 Mg PO 08/17/20 10:07 10 mg ONCE ONE Administration Cyclobenzaprine HCl 10 mg 08/17/20 20:55 Cyclobenzaprine 10 Mg PO 09/16/20 20:54 ONCE PRN MUSCLE SPASMS Diltiazem HCl 20 mg 08/16/20 10:18 08/16/20 10:24 Cardizem Iv 50 Mg/10 Ml IV 08/16/20 10:19 20 mg STAT ONE Administration Diltiazem HCl Confirm 08/16/20 10:23 Cardizem Iv 50 Mg/10 Ml Administered 08/16/20 10:24 Dose 50 mg IV .STK-MED ONE Diltiazem HCl 120 mg 08/16/20 15:15 08/17/20 10:53 Cardizem Cd 120 Mg PO 09/15/20 15:14 Not Given DAILY MILTON Diltiazem HCl Confirm 08/19/20 06:02 Cardizem Iv 50 Mg/10 Ml Administered 08/19/20 06:03 Dose 50 mg IV .STK-MED ONE Diltiazem HCl 20 mg 08/19/20 06:02 08/19/20 06:06 Cardizem Iv 50 Mg/10 Ml IV 08/19/20 06:03 20 mg STAT ONE Administration Sodium Chloride 1,000 mls @ 50 mls/hr 08/16/20 10:30 08/19/20 07:52 Sodium Chloride 0.9% 1000 Ml IV 09/15/20 10:29 Not Given .Q20H MILTON Diltiazem HCl 100 mls @ 5 mls/hr 08/16/20 10:31 08/16/20 11:20 Cardizem Drip 100 Mg/100 Ml D5w IV 09/15/20 10:30 10 mg/hr .Q20H PRN 10 mls/hr HEART RATE/ A-FIB Titration Protocol 5 MG/HR Sodium Chloride 1,000 mls @ 50 mls/hr 08/16/20 12:41 08/19/20 07:45 Sodium Chloride 0.9% 1000 Ml IV 09/15/20 12:40 50 mls/hr .Q20H MILTON Infusion Diltiazem HCl 100 mls @ 5 mls/hr 08/19/20 05:51 08/19/20 06:26 Cardizem Drip 100 Mg/100 Ml D5w IV 09/18/20 05:50 5 mg/hr .Q20H PRN 5 mls/hr HEART RATE/ A-FIB Administration Protocol 5 MG/HR Metoprolol Succinate 50 mg 08/16/20 15:30 08/17/20 10:53 Toprol Xl 50 Mg PO 09/15/20 15:29 Not Given DAILY MILTON Metoprolol Succinate 50 mg 08/18/20 09:37 Toprol Xl 50 Mg PO 09/17/20 09:35 DAILY PRN PRN HYPERTENSION Metoprolol Succinate 50 mg 08/20/20 10:00 Toprol Xl 50 Mg PO 09/19/20 09:59 DAILY [place] Miscellaneous Information 0 each 08/16/20 15:30 Medication Intervention 09/15/20 15:29 .RN TO CHECK WITH PT [facility] Morphine Sulfate 4 mg 08/16/20 10:30 08/16/20 11:04 Morphine Sulfate 4 Mg Inj IV 08/16/20 10:31 4 mg STAT ONE Administration Morphine Sulfate Confirm 08/16/20 11:03 Morphine Sulfate 4 Mg Inj Administered 08/16/20 11:04 Dose 4 mg .ROUTE .STK-MED ONE Morphine Sulfate 2 mg 08/16/20 12:41 08/18/20 06:20 Morphine Sulfate 2 Mg Inj IV 08/21/20 12:40 2 mg Q4H PRN PRN Administration PAIN Non-Formulary Medication 1 each 08/17/20 10:00 Vit A/Vit C/Vit E/Zinc/Copper [Icaps Areds Formula Dr Tablet] PO 09/16/20 09:59 DAILY MILTON Ondansetron HCl 4 mg 08/16/20 10:30 08/16/20 11:05 Zofran 4 Mg/2 Ml Vial IV 08/16/20 10:31 4 mg STAT ONE Administration Ondansetron HCl Confirm 08/16/20 11:03 Zofran 4 Mg/2 Ml Vial Administered 08/16/20 11:04 Dose 4 mg .ROUTE .STK-MED ONE Intake & Output (Last 24 hours) 08/18/20 08/19/20 08/20/20 08/21/20 11:59 11:59 11:59 11:59 Intake Total 2163 1552 60 120 Output Total 300 300 Balance 1863 1252 60 120 Weight 57.3 kg 58 kg 59.4 kg Orders (Last 24 hours) Category Date Time Status Recertification ROUTINE Admission 08/20/20 12:00 Active Hydrocodone /APAP 7.5/325 mg [Rapidan 7.5/325 mg Tab Med 08/20/20 09:29 Discontinued ] 1 tab PO Q4H PRN PRN Hydrocodone /APAP 7.5/325 mg [Rapidan 7.5/325 mg Tab Med 08/20/20 09:30 Active ] 1 tab PO Q6H PRN PRN Metoprolol Succinate 50 mg [Toprol Xl 50 MG] Med 08/20/20 10:00 Discontinued 50 mg PO DAILY NaCl 0.9% 10 ML FLUSH [Sodium Chloride 0.9% 10 ML FLUSH Med 08/19/20 22:00 Active Syringe] 10 ml IV Q8HT OT Clarification Order ROUTINE Ther 08/20/20 16:18 Active Patient Care Notes (Last 24 hours) 08/20/20 16:06 Physical Therapy Note by Annita Senior PT. REPORTS FEELING SLIGHTLY BETTER. STILL C/ON INCREASED L LE PN ESPECIALLY IN LL W/ WB. RATES L LBP AND L LE PN AT 7/10 UPON P.T. ARRIVAL TO ROOM. SUPINE TO SIT SBA W/ HOB ELEVATED. SIT TO STAND SBA. AMBULATED 120' W/ ROLLER WALKER AND SBA. NOTED DECREASED WB L LE AND SHORTENED R LE D/T L LE PN W WB. NO UNSTEADINESS NOTED BUT DID NOTE INCREASED L LE PN BY END OF WALK. PT. PERFORMED SEATED LE EX'S LAQS, AND MARCHES WELL SCAPULAR RETRACTIONS. NOTED L QUAD WEAKNESS AND PN W/ LAQS. T. DENIED NEED FOR CP. DOES FEEL DIURGESIC PATCH DECREASE PN. WILL CONT. PT 5X/WK TO MAXIMIZE FUNCTIONAL POTENTIAL TO D/C HOME. PLAN IS TO MOVE TO SWING BED TO CONT. REHAB SOON. ANNITA SENIOR, PT Initialized on 08/20/20 16:06 - END OF NOTE 08/20/20 10:46 Nursing Note by Grace Toure back to bed. Initialized on 08/20/20 10:46 - END OF NOTE 08/20/20 09:30 (created 08/20/20 10:46) Nursing Note by Grace Toure assisted oob to chair x1 assist and walker. Initialized on 08/20/20 10:46 - END OF NOTE 08/20/20 09:15 (created 08/20/20 09:30) Nursing Note by Grace Toure rounded with dr. gamboa, plan to start pt on PO pain meds and hopefully swing pt tomorrow. Initialized on 08/20/20 09:30 - END OF NOTE Code(s): I48.91 - UNSPECIFIED ATRIAL FIBRILLATION (2) Elevated troponin Current Visit: Yes Status: Resolved Code(s): R77.8 - OTHER SPECIFIED ABNORMALITIES OF PLASMA PROTEINS (3) Chronic left hip pain Current Visit: Yes Status: Acute Code(s): M25.552 - PAIN IN LEFT HIP; G89.29 - OTHER CHRONIC PAIN (4) Lumbar back pain with radiculopathy affecting left lower extremity Current Visit: Yes Status: Acute Code(s): M54.17 - RADICULOPATHY, LUMBOSACRAL REGION
[2020-08-21] MEDS: NORCO 7.5/325 MG TAB PO PRN (05:15)
[2020-08-21] MEDS: Sodium Chloride 0.9% 10 ML FLUSH Syringe IV SCH (05:15)
[2020-08-21 07:38] VITALS: BP 109/54; PULSE 73; O2SAT 94
--- NOTE | 2020-08-21 08:00 | PCM.DS ---
Discharge Summary Date of Admission: 08/16/20 17:20 Admitting Physician: KEYANNA CHURCH Primary Care Provider: KEYANNA CHURCH Allergies Allergies influenza virus vacc trivalent, split [From Fluzone] Allergy (Intermediate, Verified 08/16/20 12:57) erythromycin base Allergy (Verified 08/16/20 12:54) Itching iodine Allergy (Verified 08/16/20 12:54) Hives meloxicam Allergy (Verified 08/16/20 12:54) Hives methotrexate Allergy (Verified 08/16/20 12:54) Hives metoclopramide HCl [From Reglan] Allergy (Verified 08/16/20 12:54) Itching primidone [From Mysoline] Allergy (Verified 08/16/20 12:54) Hives methylprednisolone [From Medrol] Adverse Reaction (Verified 08/16/20 12:54) hair loss Hospital Summary - Hospital Course Hospital Course: Chief Complaint Diagnosis AFIB WITH RVR, ELEVATED TROPONIN Allergies Allergy/AdvReac Type Severity Reaction Status Date / Time influenza virus vacc Allergy Intermediate Verified 08/16/20 12:57 trivalent, split [From Fluzone] erythromycin base Allergy Itching Verified 08/16/20 12:54 iodine Allergy Hives Verified 08/16/20 12:54 meloxicam Allergy Hives Verified 08/16/20 12:54 methotrexate Allergy Hives Verified 08/16/20 12:54 metoclopramide HCl Allergy Itching Verified 08/16/20 12:54 [From Reglan] primidone [From Mysoline] Allergy Hives Verified 08/16/20 12:54 methylprednisolone AdvReac Verified 08/16/20 12:54 [From Medrol] Vital Signs (Last 24 hours) Temp Pulse Resp BP Pulse Ox 08/21/20 07:37 98.2 F 73 17 109/54 94 L 08/21/20 04:16 97.9 F 65 16 113/59 95 08/21/20 00:00 98.3 F 72 16 122/63 94 L 08/20/20 19:53 97.8 F 68 16 130/73 96 08/20/20 16:00 98.1 F 69 18 127/56 92 L 08/20/20 12:00 97.7 F 61 18 119/58 90 L Home Medications Medication Instructions Recorded Confirmed Last Taken Type Multivit-Min/FA/Lutein/Zeaxant 4 each PO DAILY 08/16/20 08/16/20 08/15/20 History [Icaps Mv Tablet] Current Medications Generic Name Dose Route Start Last Admin Trade Name Freq PRN Reason Stop Dose Admin Acetaminophen 650 mg 08/16/20 12:41 08/16/20 13:35 Tylenol 325 Mg PO 09/15/20 12:40 650 mg Q4H PRN PRN Administration PAIN AND/OR FEVER Hydrocodone Bitart/Acetaminophen 1 tab 08/20/20 09:30 08/21/20 05:15 [place] 7.5/325 Mg Tab PO 08/25/20 09:29 1 tab Q6H PRN PRN Administration PAIN Calcium Carbonate 1 tab 08/16/20 22:00 08/20/20 22:05 Calcium 500mg W/Vit D Tablet PO 09/15/20 21:59 1 tab BID MILTON Administration Clopidogrel Bisulfate 75 mg 08/16/20 16:00 08/20/20 08:46 Plavix 75 Mg Tablet PO 09/15/20 15:59 75 mg DAILY MILTON Administration Cyclobenzaprine HCl 10 mg 08/18/20 10:40 08/20/20 14:18 Cyclobenzaprine 10 Mg PO 09/17/20 10:39 10 mg TIDPRN PRN Administration MUSCLE SPASMS Diltiazem HCl 180 mg 08/19/20 12:00 08/20/20 08:46 Cardizem Cd 180 Mg PO 09/18/20 11:59 180 mg DAILY MILTON Administration Gabapentin 300 mg 08/16/20 15:00 08/20/20 22:05 Neurontin 300 Mg PO 09/15/20 14:59 300 mg TID MILTON Administration Lidocaine 1 patch 08/17/20 10:00 08/20/20 08:45 Lidoderm Patch 5% TOP 09/16/20 09:59 1 patch DAILY MILTON Administration Meclizine HCl 12.5 mg 08/16/20 15:11 Antivert 25 Mg PO 09/15/20 15:10 QID PRN PRN DIZZINESS Morphine Sulfate 4 mg 08/18/20 09:36 08/20/20 05:59 Morphine Sulfate 4 Mg Inj IV 08/23/20 09:35 4 mg Q6H PRN PRN Administration PAIN Multivitamins/Minerals 4 tab 08/17/20 10:00 08/20/20 08:46 Ocuvite Tablet PO 09/16/20 09:59 4 tab DAILY MILTON Administration Non-Formulary Medication 1 each 08/17/20 22:00 08/20/20 22:05 Remove Patch Reminder TOP 09/16/20 21:59 1 each HS MILTON Administration Ondansetron HCl 4 mg 08/16/20 12:41 Zofran 4 Mg/2 Ml Vial IV 09/15/20 12:40 Q6H PRN PRN NAUSEA/VOMITING Pantoprazole Sodium 40 mg 08/16/20 15:15 08/20/20 08:46 Protonix 40mg Tablet PO 09/15/20 15:14 40 mg DAILY MILTON Administration Patient Own Med ( 0 each 08/17/20 22:00 08/20/20 22:05 Melatonin) PO 09/16/20 21:59 1 each HS MILTON Administration Polyethylene Glycol 17 gm 08/16/20 15:00 08/20/20 08:45 Miralax Powder 17gm Packet PO 09/15/20 14:59 17 gm DAILY MILTON Administration Sertraline HCl 50 mg 08/16/20 15:15 08/20/20 08:46 Zoloft 50 Mg Tablet PO 09/15/20 15:14 50 mg DAILY MILTON Administration Sodium Chloride 10 ml 08/19/20 22:00 08/21/20 05:15 Sodium Chloride 0.9% 10 Ml Flush Syringe IV 09/18/20 21:59 10 ml Q8HT MILTON Administration Discontinued Medications Generic Name Dose Route Start Last Admin Trade Name Freq PRN Reason Stop Dose Admin Hydrocodone Bitart/Acetaminophen 1 tab 08/16/20 14:54 08/17/20 18:56 [place] 7.5/325 Mg Tab PO 08/21/20 14:53 1 tab Q6H PRN PRN Administration PAIN Hydrocodone Bitart/Acetaminophen 1 tab 08/20/20 09:29 [place] 7.5/325 Mg Tab PO 08/25/20 09:28 Q4H PRN PRN PAIN Cyclobenzaprine HCl 10 mg 08/17/20 10:06 08/17/20 11:41 Cyclobenzaprine 10 Mg PO 08/17/20 10:07 10 mg ONCE ONE Administration Cyclobenzaprine HCl 10 mg 08/17/20 20:55 Cyclobenzaprine 10 Mg PO 09/16/20 20:54 ONCE PRN MUSCLE SPASMS Diltiazem HCl 20 mg 08/16/20 10:18 08/16/20 10:24 Cardizem Iv 50 Mg/10 Ml IV 08/16/20 10:19 20 mg STAT ONE Administration Diltiazem HCl Confirm 08/16/20 10:23 Cardizem Iv 50 Mg/10 Ml Administered 08/16/20 10:24 Dose 50 mg IV .STK-MED ONE Diltiazem HCl 120 mg 08/16/20 15:15 08/17/20 10:53 Cardizem Cd 120 Mg PO 09/15/20 15:14 Not Given DAILY MILTON Diltiazem HCl Confirm 08/19/20 06:02 Cardizem Iv 50 Mg/10 Ml Administered 08/19/20 06:03 Dose 50 mg IV .STK-MED ONE Diltiazem HCl 20 mg 08/19/20 06:02 08/19/20 06:06 Cardizem Iv 50 Mg/10 Ml IV 08/19/20 06:03 20 mg STAT ONE Administration Sodium Chloride 1,000 mls @ 50 mls/hr 08/16/20 10:30 08/19/20 07:52 Sodium Chloride 0.9% 1000 Ml IV 09/15/20 10:29 Not Given .Q20H MILTON Diltiazem HCl 100 mls @ 5 mls/hr 08/16/20 10:31 08/16/20 11:20 Cardizem Drip 100 Mg/100 Ml D5w IV 09/15/20 10:30 10 mg/hr .Q20H PRN 10 mls/hr HEART RATE/ A-FIB Titration Protocol 5 MG/HR Sodium Chloride 1,000 mls @ 50 mls/hr 08/16/20 12:41 08/19/20 07:45 Sodium Chloride 0.9% 1000 Ml IV 09/15/20 12:40 50 mls/hr .Q20H MILTON Infusion Diltiazem HCl 100 mls @ 5 mls/hr 08/19/20 05:51 08/19/20 06:26 Cardizem Drip 100 Mg/100 Ml D5w IV 09/18/20 05:50 5 mg/hr .Q20H PRN 5 mls/hr HEART RATE/ A-FIB Administration Protocol 5 MG/HR Metoprolol Succinate 50 mg 08/16/20 15:30 08/17/20 10:53 Toprol Xl 50 Mg PO 09/15/20 15:29 Not Given DAILY MILTON Metoprolol Succinate 50 mg 08/18/20 09:37 Toprol Xl 50 Mg PO 09/17/20 09:35 DAILY PRN PRN HYPERTENSION Metoprolol Succinate 50 mg 08/20/20 10:00 Toprol Xl 50 Mg PO 09/19/20 09:59 DAILY MILTON Miscellaneous Information 0 each 08/16/20 15:30 Medication Intervention [facility] 09/15/20 15:29 .RN TO CHECK WITH PT [facility] Morphine Sulfate 4 mg 08/16/20 10:30 08/16/20 11:04 Morphine Sulfate 4 Mg Inj IV 08/16/20 10:31 4 mg STAT ONE Administration Morphine Sulfate Confirm 08/16/20 11:03 Morphine Sulfate 4 Mg Inj Administered 08/16/20 11:04 Dose 4 mg .ROUTE .STK-MED ONE Morphine Sulfate 2 mg 08/16/20 12:41 08/18/20 06:20 Morphine Sulfate 2 Mg Inj IV 08/21/20 12:40 2 mg Q4H PRN PRN Administration PAIN Non-Formulary Medication 1 each 08/17/20 10:00 Vit A/Vit C/Vit E/Zinc/Copper [Icaps Areds Formula Dr Tablet] PO 09/16/20 09:59 DAILY MILTON Ondansetron HCl 4 mg 08/16/20 10:30 08/16/20 11:05 Zofran 4 Mg/2 Ml Vial IV 08/16/20 10:31 4 mg STAT ONE Administration Ondansetron HCl Confirm 08/16/20 11:03 Zofran 4 Mg/2 Ml Vial Administered 08/16/20 11:04 Dose 4 mg .ROUTE .STK-MED ONE Intake & Output (Last 24 hours) 08/18/20 08/19/20 08/20/2008/21/20 11:59 11:59 11:59 11:59 Intake Total 2163 1552 60 300 Output Total 300 300 Balance 1863 1252 60 300 Weight 57.3 kg 58 kg 59.4 kg 103 kg Microbiology Results (Last 24 hours) 08/16/20 10:45 Blood Blood Culture Gram Stain - Final Not Reportable 08/16/20 10:45 Blood Blood Culture - Final NO GROWTH 08/16/20 10:45 Blood Blood Culture Gram Stain - Final Not Reportable 08/16/20 10:45 Blood Blood Culture - Final NO GROWTH Orders (Last 24 hours) Category Date Time Status Recertification ROUTINE Admission 08/20/20 12:00 Active Hydrocodone /APAP 7.5/325 mg [[place] 7.5/325 mg Tab Med 08/20/20 09:29 Discontinued ] 1 tab PO Q4H PRN PRN Hydrocodone /APAP 7.5/325 mg [[place] 7.5/325 mg Tab Med 08/20/20 09:30 Active ] 1 tab PO Q6H PRN PRN Metoprolol Succinate 50 mg [Toprol Xl 50 MG] Med 08/20/20 10:00 Discontinued 50 mg PO DAILY OT Clarification Order ROUTINE Ther 08/20/20 16:18 Active Patient Care Notes (Last 24 hours) 08/20/20 16:06 Physical Therapy Note by Annita Senior PT. REPORTS FEELING SLIGHTLY BETTER. STILL C/ON INCREASED L LE PN ESPECIALLY IN LL W/ WB. RATES L LBP AND L LE PN AT 7/10 UPON P.T. ARRIVAL TO ROOM. SUPINE TO SIT SBA W/ HOB ELEVATED. SIT TO STAND SBA. AMBULATED 120' W/ ROLLER WALKER AND SBA. NOTED DECREASED WB L LE AND SHORTENED R LE D/T L LE PN W WB. NO UNST EADINESS NOTED BUT DID NOTE INCREASED L LE PN BY END OF WALK. PT. PERFORMED SEATED LE EX'S LAQS, AND MARCHES WELL SCAPULAR RETRACTIONS. NOTED L QUAD WEAKNESS AND PN W/ LAQS. T. DENIED NEED FOR CP. DOES FEEL DIURGESIC PATCH DECREASE PN. WILL CONT. PT 5X/WK TO MAXIMIZE FUNCTIONAL POTENTIAL TO D/C HOME. PLAN IS TO MOVE TO SWING BED TO CONT. REHAB SOON. ANNITA BILL, PT Initialized on 08/20/20 16:06 - END OF NOTE 08/20/20 10:46 Nursing Note by Grace Toure back to bed. Initialized on 08/20/20 10:46 - END OF NOTE 08/20/20 09:30 (created 08/20/20 10:46) Nursing Note by Grace Toure assisted oob to chair x1 assist and walker. Initialized on 08/20/20 10:46 - END OF NOTE 08/20/20 09:15 (created 08/20/20 09:30) Nursing Note by Grace Toure rounded with dr. church, plan to start pt on PO pain meds and hopefully swing pt tomorrow. Initialized on 08/20/20 09:30 - END OF NOTE - Vitals & Intake/Output Vital Signs: Vital Signs Temperature 98.2 F 08/21/20 07:37 Pulse Rate 73 08/21/20 07:37 Respiratory Rate 17 08/21/20 07:37 Blood Pressure 109/54 08/21/20 07:37 O2 Sat by Pulse Oximetry 94 L 08/21/20 07:37 Intake & Output: Intake & Output 08/18/20 08/19/20 08/20/20 08/21/20 11:59 11:59 11:59 11:59 Intake Total 2163 1552 60 300 Output Total 300 300 Balance 1863 1252 60 300 Weight 57.3 kg 58 kg 59.4 kg 103 kg - Lab Result Diagrams: 08/19/20 06:14 08/19/20 06:14 Micro Results-Entire Visit: Microbiology 08/16/20 10:45 Blood Culture Gram Stain - Final Blood Not Reportable Blood Culture - Final NO GROWTH 08/16/20 10:45 Blood Culture Gram Stain - Final Blood Not Reportable Blood Culture - Final NO GROWTH 08/16/20 10:18 Urine Culture - Final Urine, Void MIXED MISSY; 3 OR MORE TYPES. NO PREDOMINANT ORGANISM. NO FURTHER WORKUP. PLEASE RESUBMIT IF CLINICALLY INDICATED. - Radiology Exams Ordered Rad Exams-Entire Visit: Radiology Procedures Category Date Time Status ECHO W/2D AND DOPPLER [US] Routine Exams 08/19/20 10:00 Taken MRI L-SPINE WITHOUT CONTRAST [MRI] Routine Exams 08/19/20 16:47 Completed MRI PELVIS WITHOUT CONTRAST [MRI] Routine Exams 08/19/20 13:02 Completed - Procedures and Test Procedures and Tests throughout Hospitalization: Therapy Orders & Screens 08/16/20 12:41 PT Eval & Treat ( Order) ONCE Reason for Eval:: Chronic left hip pain Diagnosis: Chronic left hip pain EKG REPEAT IN AM Comment: 08/16/20 13:15 PT Screen per Nursing Assess ONCE Comment: Protocol Order Physician Instructions: Greater than 3 points order PT Admission Screenin Reason For Exam: Triggered on Admission Diagnosis: Chronic left hip pain Open Wound/Cellutlitis/Pressure Ulcers: No Acute Fx/ORIF/Change in wt bearing status: No Severe MUSCULOSKELETAL pain: Yes ADL Dysfunction: Yes Acute CVA w/Hemiparesis/Hemiplegia: No Decreased Functional Mobility/Strength: Yes Sprain/Strain: No Acute Post-op Mobility Dysfunction: No Total Points: 9 08/18/20 09:38 OT Eval and Treat ( Order) ONCE Comment: Consulting Provider: Physician Instructions: Reason For Exam: ADL dysfunction r/t intractable pain Evaluate: Yes Treat: Yes Diagnosis: AFIB WITH RVR, ELEVATED TROPONIN 08/19/20 06:05 EKG STAT Comment: Diagnosis: AFIB WITH RVR, ELEVATED TROPONIN 08/19/20 08:00 PT Eval & Treat ( Order) ONCE Reason for Eval:: intractable pain left hip/leg; ADL dysfunction; decreased functional mobility Diagnosis: AFIB WITH RVR, ELEVATED TROPONIN 08/20/20 16:18 OT Clarification Order ROUTINE Comment: Physician Instructions: Reason For Exam: OT Clarification: Occupational Therapy to treat patient 1x/week x5 days/week excluding weekends and holidays to include Evaluation/Re-Assessment, Therapeutic Exercise, Therapeutic Activity/ADs, and AE/AD education to address functional strength, I/ADL independence, AE/AD education/training, and family/patient education in order to facilitate return to PLOF with all I/ADLs. Discharge Exam General Appearance: no apparent distress, alert Neurologic Exam: alert, oriented x 3, cooperative, normal mood/affect, nml cerebellar function, sensation nml, No motor deficits Eye Exam: PERRL, EOMI, eyes nml inspection Ears, Nose, Throat Exam: normal ENT inspection, pharynx normal, moist mucous membranes Neck Exam: normal inspection, non-tender, supple, full range of motion Respiratory Exam: normal breath sounds, lungs clear, No respiratory distress Cardiovascular Exam: regular rate/rhythm, normal heart sounds Gastrointestinal/Abdomen Exam: soft, No tenderness, No mass Pelvic Exam: deferred Rectal Exam: deferred Back Exam: normal inspection, normal range of motion, No CVA tenderness, No vertebral tenderness Extremity Exam: normal inspection, normal range of motion Skin Exam: normal color, warm, dry Final Diagnosis/Problem List - Final Discharge Diagnosis/Problem (1) Atrial fibrillation with RVR Current Visit: Yes Status: Resolved Code(s): I48.91 - UNSPECIFIED ATRIAL FIBRILLATION (2) Elevated troponin Current Visit: Yes Status: Resolved Code(s): R77.8 - OTHER SPECIFIED ABNORMALITIES OF PLASMA PROTEINS (3) Chronic left hip pain Current Visit: Yes Status: Acute Code(s): M25.552 - PAIN IN LEFT HIP; G89.29 - OTHER CHRONIC PAIN (4) Lumbar back pain with radiculopathy affecting left lower extremity Current Visit: Yes Status: Acute Code(s): M54.17 - RADICULOPATHY, LUMBOSACRAL REGION - Discharge Discharge Date: 08/21/20 Disposition: Swing Bed @ [facility] Condition: Stable Prescriptions: No Action Esomeprazole Magnesium [Nexium] 40 mg PO DAILY Meclizine HCl [Antivert] 12.5 mg PO QID PRN PRN PRN Reason: Dizziness Hydrocodone Bit/Acetaminophen [[place] 5-325 Tablet] 7.5 each PO Q6H PRN PRN PRN Reason: Pain Acetaminophen [Tylenol Extra Strength] 2 tab PO Q4H PRN PRN PRN Reason: Pain Vit A/Vit C/Vit E/Zinc/Copper [Icaps Areds Formula Dr Tablet] 1 each PO DAILY Polyethylene Glycol 3350 17 gm [Miralax Powder 17GM PACKET] 17 gm PO DAILY Gabapentin 300 mg PO TID Melatonin/Pyridoxine HCl (B6) [Melatonin 3 mg Tablet] 1 each PO HS Sertraline HCl 50 mg PO DAILY Calcium Carbonate/Vitamin D3 [Calcium 600-Vit D3 200 Tablet] 1 each PO BID Multivit-Min/FA/Lutein/Zeaxant [Icaps Mv Tablet] 4 each PO DAILY Instructions: Sciatica Follow up with: KEYANNA CHURCH MD [Primary Care Provider] - 1 Week
[2020-08-21] MEDS: Ocuvite Tablet PO SCH (09:29)
[2020-08-21] MEDS: Cardizem CD 180 MG PO SCH (09:31)
[2020-08-21] MEDS: NEURONTIN 300 MG PO SCH (09:31)
[2020-08-21] MEDS: ZOLOFT 50 MG TABLET PO SCH (09:31)
[2020-08-21] MEDS: Protonix 40MG Tablet PO SCH (09:31)
[2020-08-21] MEDS: Calcium 500MG W/Vit D Tablet PO SCH (09:31)
[2020-08-21] MEDS: PLAVIX 75 MG Tablet PO SCH (09:31)
[2020-08-21] MEDS: Miralax Powder 17GM PACKET PO SCH (09:34)
[2020-08-21] MEDS: Lidoderm Patch 5% TOP SCH (10:21)
== END 2020-08-21 11:30 | disposition swing bed (61) | DRG 310 ==
LOC: ED 10:02 → ICU 12:34 → OBSVTOIN 17:20
PROVIDERS: ADMIT General Practice; ATTEND General Practice
DX: I48.91 Unspecified atrial fibrillation (principal); R77.8 Other specified abnormalities of plasma proteins; M25.552 Pain in left hip; M54.17 Radiculopathy, lumbosacral region; Z79.899 Other long term (current) drug therapy; M54.30 Sciatica, unspecified side
CPT/HCPCS: 36000; 36415; 72148; 72195; 80048; 80053; 81001; 83735; 83880; 84134; 84484; 85025; 85027; 85610; 87040; 87086; 93005; 93041; 93306; 94760; 96365; 96374; 96375; 96376; 99285; 99291; J2270; J2405; 97110-GP; A9270-GY

== ENCOUNTER 2020-08-21 11:15 | Inpatient (IN) | payer MEDICARE ==
[2020-08-21] MEDS ORDERED: ANTIVERT 25 MG PO PRN (11:36)
[2020-08-21] MEDS ORDERED: Zofran 4 MG/2 ML VIAL IV PRN (11:36)
[2020-08-21] MEDS ORDERED: TYLENOL 325 MG PO PRN (11:36)
[2020-08-21] MEDS ORDERED: Aplisol ID ONE (11:36)
[2020-08-21] MEDS ORDERED: MORPHINE SULFATE 4 MG INJ IV PRN (11:36)
--- NOTE | 2020-08-21 12:08 | XRAY ---
Indication: Swing bed placement. Comparison: September 17, 2017. Portable chest remains hyperinflated with new mild bibasilar infiltrates versus atelectasis and small effusions, right greater than left. Remaining heart and upper lungs unremarkable. Bony thorax intact again with mild osteopenia and right shoulder surgery.
[2020-08-21] MEDS: NORCO 7.5/325 MG TAB PO PRN ×2 (12:44→22:53)
[2020-08-21] MEDS: Sodium Chloride 0.9% 10 ML FLUSH Syringe IV SCH (14:27)
[2020-08-21] MEDS: NEURONTIN 300 MG PO SCH ×2 (14:55→22:54)
[2020-08-21] MEDS: Calcium 500MG W/Vit D Tablet PO SCH (22:54)
[2020-08-21] MEDS: PATIENT OWN MEDICATION PO SCH (22:54)
[2020-08-22] MEDS: Sodium Chloride 0.9% 10 ML FLUSH Syringe IV SCH ×4 (04:57→21:18)
[2020-08-22] MEDS: NORCO 7.5/325 MG TAB PO PRN ×3 (04:57→19:34)
[2020-08-22] MEDS: ZOLOFT 50 MG TABLET PO SCH (09:00)
[2020-08-22] MEDS: NEURONTIN 300 MG PO SCH ×3 (09:00→21:17)
[2020-08-22] MEDS: Ocuvite Tablet PO SCH (09:00)
[2020-08-22] MEDS: Miralax Powder 17GM PACKET PO SCH (09:00)
[2020-08-22] MEDS: PLAVIX 75 MG Tablet PO SCH (09:00)
[2020-08-22] MEDS: Lidoderm Patch 5% TOP SCH (09:00)
[2020-08-22] MEDS: Calcium 500MG W/Vit D Tablet PO SCH ×2 (09:00→21:17)
[2020-08-22] MEDS: Cardizem CD 180 MG PO SCH (09:00)
[2020-08-22] MEDS: Protonix 40MG Tablet PO SCH (09:00)
[2020-08-22] MEDS ORDERED: Aplisol ID ONE (10:00)
[2020-08-22] MEDS: Cyclobenzaprine 10 MG PO PRN (14:53)
--- NOTE | 2020-08-22 15:55 | PCM.HP.ADD ---
Addendum to History & Physical - History & Physical Addendum Addendum to History & Physical: This certifies that the History & Physical in the electronic chart reflects the current health status of the patient. If there are changes in the H&P these changes/exceptions are listed as follows.
--- NOTE | 2020-08-22 15:56 | PCM.NOTE ---
Date and Time: 08/22/20 5861 Subjective Assessment: doing better - Review of Systems Constitutional: No Fever, No Chills Eyes: No Symptoms Ears, Nose, & Throat: No Symptoms Respiratory: No Cough, No Short Of Breath Cardiac: No Chest Pain, No Edema, No Syncope Abdominal/Gastrointestinal: No Abdominal Pain, No Nausea, No Vomiting, No Diarrhea Genitourinary Symptoms: No Dysuria Musculoskeletal: No Back Pain, No Neck Pain Skin: No Rash Neurological: No Dizziness, No Focal Weakness, No Sensory Changes Psychological: No Symptoms Endocrine: No Symptoms Hematologic/Lymphatic: No Symptoms Immunological/Allergic: No Symptoms Objective Exam General Appearance: no apparent distress, alert Neurologic Exam: alert, oriented x 3, cooperative, normal mood/affect, nml cerebellar function, sensation nml, No motor deficits Skin Exam: normal color, warm, dry Eye Exam: PERRL, EOMI, eyes nml inspection Ears, Nose, Throat Exam: normal ENT inspection, pharynx normal, moist mucous membranes Neck Exam: normal inspection, non-tender, supple, full range of motion Respiratory Exam: normal breath sounds, lungs clear, No respiratory distress Cardiovascular Exam: regular rate/rhythm, normal heart sounds Gastrointestinal/Abdomen Exam: soft, No tenderness, No mass Extremity Exam: normal inspection, normal range of motion Back Exam: normal inspection, normal range of motion, No CVA tenderness, No vertebral tenderness Pelvic Exam: deferred Rectal Exam: deferred OBJECTIVE DATA Vital Signs: Vital Signs - 24 hr Temp Pulse Resp BP Pulse Ox 08/22/20 11:53 98.2 F 69 18 123/61 93 L 08/22/20 07:43 98.3 F 68 16 117/58 91 L 08/22/20 03:00 97.7 F 72 16 107/55 95 08/21/20 20:00 98.1 F 69 17 124/58 94 L Pain Assessment - Last Documented Pain Intensity 9 Pain Scale Used 0-10 Pain Scale Intake and Output: Intake & Output 08/20/20 08/21/20 08/22/20 08/23/20 11:59 11:59 11:59 11:59 Intake Total 920 240 Balance 920 240 Weight 55 kg Radiology Exams: Radiology Procedures Category Date Time Status CHEST 1 VIEW (PORTABLE) Urgent Exams 08/21/20 14:00 Completed Multi-Disciplinary Progress Notes: Multi-Disciplinary Progress Notes 08/22/20 14:12 Physical Therapy Note by Derek Bedoya AM: Pt in chair and agreeable to PT. Pt was able to stand, amb and transfer to toilet with RW and SBA. Pt amb 200+ feet and return to room. PM: PT attempted after lunch. Pt had just had lotion applied to sore feet and wanted to rest. Pt is agreeable to PT later this afternoon. 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 Initialized on 08/22/20 14:12 - END OF NOTE Assessment/Plan (1) Chronic left hip pain Current Visit: No Status: Acute Code(s): M25.552 - PAIN IN LEFT HIP; G89.29 - OTHER CHRONIC PAIN (2) Lumbar back pain with radiculopathy affecting left lower extremity Current Visit: No Status: Acute Code(s): M54.17 - RADICULOPATHY, LUMBOSACRAL REGION (3) Sciatica Current Visit: No Status: Acute Code(s): M54.30 - SCIATICA, UNSPECIFIED SIDE (4) Atrial fibrillation with RVR Current Visit: No Status: Resolved Code(s): I48.91 - UNSPECIFIED ATRIAL FIBRILLATION
[2020-08-22] MEDS: PATIENT OWN MEDICATION PO SCH (21:17)
[2020-08-23] MEDS: Sodium Chloride 0.9% 10 ML FLUSH Syringe IV SCH ×3 (06:02→21:10)
[2020-08-23] MEDS ORDERED: BACTRIM DS TABLET PO SCH (10:00)
[2020-08-23] MEDS: NORCO 7.5/325 MG TAB PO PRN ×2 (10:24→21:07)
[2020-08-23] MEDS: Lidoderm Patch 5% TOP SCH (10:25)
[2020-08-23] MEDS: NEURONTIN 300 MG PO SCH ×3 (10:26→21:08)
[2020-08-23] MEDS: Protonix 40MG Tablet PO SCH (10:26)
[2020-08-23] MEDS: PLAVIX 75 MG Tablet PO SCH (10:26)
[2020-08-23] MEDS: ZOLOFT 50 MG TABLET PO SCH (10:26)
[2020-08-23] MEDS: Ocuvite Tablet PO SCH (10:26)
[2020-08-23] MEDS: Miralax Powder 17GM PACKET PO SCH (10:27)
[2020-08-23] MEDS: Cardizem CD 180 MG PO SCH (10:27)
[2020-08-23] MEDS: Calcium 500MG W/Vit D Tablet PO SCH ×2 (10:27→21:08)
[2020-08-23] MEDS: PATIENT OWN MEDICATION PO SCH (21:11)
[2020-08-24 03:44] VITALS: O2SAT 93
[2020-08-24] MEDS: Sodium Chloride 0.9% 10 ML FLUSH Syringe IV SCH (06:13)
[2020-08-24 07:22] VITALS: BP 130/62; PULSE 65
[2020-08-24] MEDS: Lidoderm Patch 5% TOP SCH (09:18)
[2020-08-24] MEDS: Ocuvite Tablet PO SCH (09:18)
[2020-08-24] MEDS: Cyclobenzaprine 10 MG PO PRN (09:19)
[2020-08-24] MEDS: Cardizem CD 180 MG PO SCH (09:19)
[2020-08-24] MEDS: NEURONTIN 300 MG PO SCH (09:19)
[2020-08-24] MEDS: Miralax Powder 17GM PACKET PO SCH (09:19)
[2020-08-24] MEDS: PLAVIX 75 MG Tablet PO SCH (09:19)
[2020-08-24] MEDS: NORCO 7.5/325 MG TAB PO PRN (09:19)
[2020-08-24] MEDS: Calcium 500MG W/Vit D Tablet PO SCH (09:19)
[2020-08-24] MEDS: Protonix 40MG Tablet PO SCH (09:19)
[2020-08-24] MEDS: ZOLOFT 50 MG TABLET PO SCH (09:19)
--- NOTE | 2020-08-24 12:24 | PCM.DS ---
Discharge Summary Date of Admission: 08/21/20 11:30 Admitting Physician: KEYANNA CHURCH Primary Care Provider: KEYANNA CHURCH Allergies Allergies influenza virus vacc trivalent, split [From Fluzone] Allergy (Intermediate, Verified 08/16/20 12:57) erythromycin base Allergy (Verified 08/16/20 12:54) Itching iodine Allergy (Verified 08/16/20 12:54) Hives meloxicam Allergy (Verified 08/16/20 12:54) Hives methotrexate Allergy (Verified 08/16/20 12:54) Hives metoclopramide HCl [From Reglan] Allergy (Verified 08/16/20 12:54) Itching primidone [From Mysoline] Allergy (Verified 08/16/20 12:54) Hives methylprednisolone [From Medrol] Adverse Reaction (Verified 08/16/20 12:54) hair loss Hospital Summary - Hospital Course Hospital Course: Pt is 89 yo female with hx multiple back surgeries, spinal stenosis, and new onset afib this hospitalization who was admitted to swing bed from acute care at [facility]. She had severe L lower back pain radiating down the leg. This morning she says she feels pretty good and would like to go home today. She's been up walking. The pain is "just a little" in the L hip, but the lidocaine patch helps. - Vitals & Intake/Output Vital Signs: Vital Signs Temperature 98.2 F 08/24/20 07:22 Pulse Rate 65 08/24/20 07:22 Respiratory Rate 16 08/24/20 07:22 Blood Pressure 130/62 08/24/20 07:22 O2 Sat by Pulse Oximetry 93 L 08/24/20 07:22 Intake & Output: Intake & Output 08/22/20 08/23/20 08/24/20 08/25/20 11:59 11:59 11:59 11:59 Intake Total 920 820 720 Balance 920 820 720 Weight 55 kg - Procedures and Test Procedures and Tests throughout Hospitalization: Therapy Orders & Screens 08/21/20 11:36 PT Eval & Treat ( Order) ONCE Reason for Eval:: intractable pain left hip/leg; ADL dysfunction; decreased functional mobility Diagnosis: AFIB WITH RVR, ELEVATED TROPONIN OT Clarification Order ROUTINE Comment: Physician Instructions: Reason For Exam: OT Clarification: Occupational Therapy to treat patient 1x/week x5 days/week excluding weekends and holidays to include Evaluation/Re-Assessment, Therapeutic Exercise, Therapeutic Activity/ADs, and AE/AD education to address functional strength, I/ADL independence, AE/AD education/training, and family/patient education in order to facilitate return to PLOF with all I/ADLs. 08/21/20 15:08 PT Clarification Order ROUTINE Comment: Physician Instructions: Reason For Exam: PT Clarification: PT. TO RX 5X/WK UNTIL D/C TO ADDRESS FUNCTIONAL MOBILITY AND GAIT TRAINING, THER EX, BALANCE ACTIVITIES, AND SAFETY AWARENESS ED TO MAXIMIZE FUNCTIONAL POTENTIAL FOR SAFE RETURN HOME. Discharge Exam General Appearance: no apparent distress, alert (up in chair) Neurologic Exam: cooperative, normal mood/affect Eye Exam: eyes nml inspection Ears, Nose, Throat Exam: moist mucous membranes Neck Exam: normal inspection Respiratory Exam: normal breath sounds, lungs clear, No crackles/rales, No rhonchi, No wheezing Cardiovascular Exam: normal heart sounds, irregular (afib with rate controlled), No murmur Gastrointestinal/Abdomen Exam: soft, normal bowel sounds, No tenderness, No distention, No mass, No guarding, No rebound Back Exam: normal inspection, No rash Extremity Exam: normal inspection, No pedal edema, No swelling Skin Exam: normal color, warm, dry, No rash Final Diagnosis/Problem List - Final Discharge Diagnosis/Problem (1) Lumbar back pain with radiculopathy affecting left lower extremity Current Visit: No Status: Resolved Code(s): M54.17 - RADICULOPATHY, LUMBOSACRAL REGION (2) Sciatica Current Visit: No Status: Resolved Code(s): M54.30 - SCIATICA, UNSPECIFIED SIDE (3) Atrial fibrillation Current Visit: Yes Status: Chronic Assessment & Plan: rate controlled. Code(s): I48.91 - UNSPECIFIED ATRIAL FIBRILLATION (4) Chronic left hip pain Current Visit: No Status: Acute Code(s): M25.552 - PAIN IN LEFT HIP; G89.29 - OTHER CHRONIC PAIN - Discharge Disposition: Home, Self-Care Condition: Good Prescriptions: New Cyclobenzaprine HCl 10 mg [Cyclobenzaprine 10 MG] 10 mg PO TIDPRN PRN #21 tablet PRN Reason: Muscle Spasms Diltiazem HCl [Diltiazem 24Hr ER] 180 mg PO DAILY #30 cap.sa.24h Lidocaine HCl 5% Patch [Lidoderm Patch 5%] 3 patch TOP DAILY #90 patch Clopidogrel Bisulfate 75 mg [PLAVIX 75 MG Tablet] 75 mg PO DAILY tablet Continue Esomeprazole Magnesium [Nexium] 40 mg PO DAILY Meclizine HCl [Antivert] 12.5 mg PO QID PRN PRN PRN Reason: Dizziness Hydrocodone Bit/Acetaminophen [[place] 5-325 Tablet] 7.5 each PO Q6H PRN PRN PRN Reason: Pain Acetaminophen [Tylenol Extra Strength] 2 tab PO Q4H PRN PRN PRN Reason: Pain Vit A/Vit C/Vit E/Zinc/Copper [Icaps Areds Formula Dr Tablet] 1 each PO DAILY Polyethylene Glycol 3350 17 gm [Miralax Powder 17GM PACKET] 17 gm PO DAILY Gabapentin 300 mg PO TID Melatonin/Pyridoxine HCl (B6) [Melatonin 3 mg Tablet] 1 each PO HS Sertraline HCl 50 mg PO DAILY Calcium Carbonate/Vitamin D3 [Calcium 600-Vit D3 200 Tablet] 1 each PO BID Multivit-Min/FA/Lutein/Zeaxant [Icaps Mv Tablet] 4 each PO DAILY Smz/Tmp Ds Tablet [Bactrim Ds Tablet] 1 tab PO UD Instructions: Preventing Falls in the Older Adult, Atrial Fibrillation (DC), Osteoporosis (DC), Diltiazem Follow up with: KEYANNA CHURCH MD [Primary Care Provider] - Call for Appointment
== END 2020-08-24 12:40 | disposition home or self-care (01) | DRG 552 ==
LOC: MED SURG 11:30
PROVIDERS: ADMIT General Practice; ATTEND General Practice
DX: M54.16 Radiculopathy, lumbar region (principal); M54.30 Sciatica, unspecified side; I48.91 Unspecified atrial fibrillation; M25.552 Pain in left hip; G89.29 Other chronic pain; Z79.899 Other long term (current) drug therapy
CPT/HCPCS: 71045; J2270; J2405; 97110-GP; A9270-GY